=== PATIENT | female | born 1945 | race Caucasian/White ===

== ENCOUNTER → 2017-12-02 | Outpatient (CLI) | payer OTHER ==
[~2017-12-02] VITALS: Ht 165.1 cm; Wt 70.3 kg
[~2017-12-02] MED LIST: ABILIFY 5 MG TAB5 MG PO; ALENDRONATE SOD35 MG PO; ARICEPT 5 MG TAB5 MG PO; ASPIR 8181 MG PO; COREG12.5 MG PO; DEPLIN-ALGAL O1 EAC1 PO; DITROPAN XL10 M1 PO; HUMALOG100 UNIT/2 SQ; HYDRALAZINE 2525 MG PO; LEVEMIR SUBQ; LISINOPRIL20 MG PO; METFORMIN HCL500 MG PO; NORVASC10 MG PO; PANTOPRAZOLE SO20 MG PO; PAXIL10 MG PO; PLAVIX 75 MG TA75 M1 PO; PRAVACHOL40 MG PO; PRAVACHOL80 MG PO
[2017-12-02 13:20] VITALS: BP 170/73
[2017-12-02 13:30] VITALS: BP 170/73
[2017-12-02 15:33] LABS: % SATURATION 17 % (20-39); ALBUMIN 3.5 g/dL (3.4-5.0); ANION GAP 7 mmol/L (7-16); BUN 28 mg/dL (7-18); CALCIUM 9.4 mg/dL (8.5-10.1); CHLORIDE 105 mmol/L (98-107); CHOLESTEROL 247 mg/dL (<200); CO2 31 mmol/L (21-32); CREATININE 0.9 mg/dL (0.6-1.0); GLUCOSE 74 mg/dL (74-106); HDL CHOLESTEROL 45 mg/dL (>40); IRON 78 ug/dL (50-170); LDL CHOLESTEROL 170 mg/dL (<100); MAGNESIUM 2.2 mg/dL (1.8-2.4); POTASSIUM 4.1 mmol/L (3.5-5.1); SGOT 15 U/L (15-37); SGPT 22 U/L (30-65); SODIUM 143 mmol/L (136-145); TC:HDL 5.5 Ratio (Not establshd); TIBC 471 ug/dL (250-450); TOTAL BILIRUBIN 0.3 mg/dL (<0.1-1.0); TOTAL PROTEIN 7.6 g/dL (6.4-8.2); TRIGLYCERIDE 164 mg/dL (<150); VLDL 33 mg/dL (<40)
[2017-12-02 16:03] LABS: TSH 1.955 uIU/mL (0.358-3.740)
[2017-12-03 01:08] LABS: 25-HYDROXY TOTAL 19.7 ng/mL (30.0-100.0)
[2017-12-03 09:11] LABS: GLYCOHEMOGLOBIN (HGB A1C) 9.8 % (4.8-5.6)
[2017-12-05 08:12] LABS: LEVETIRACETAM (KEPPRA) 27.6 ug/mL (10.0-40.0)
== END ==
LOC: SEN 11:21
PROVIDERS: Registered Nurse
DX: I10 Essential (primary) hypertension (principal); E11.65 Type 2 diabetes mellitus with hyperglycemia; R53.83 Other fatigue; G31.84 Mild cognitive impairment of uncertain or unknown etiology

== ENCOUNTER → 2017-12-24 | Outpatient (CLI) | payer OTHER ==
[~2017-12-24] VITALS: Ht 162.6 cm; Wt 71.7 kg
[2017-12-24 13:15] VITALS: BP 157/66
== END ==
LOC: SEN 08:25
DX: E11.9 Type 2 diabetes mellitus without complications (principal); I10 Essential (primary) hypertension; F41.9 Anxiety disorder, unspecified; G31.84 Mild cognitive impairment of uncertain or unknown etiology; R53.81 Other malaise

== ENCOUNTER 2018-09-10 09:59 | Inpatient (IN) | payer OTHER ==
[2018-09-10] VITALS (12 sets, daily range): BP systolic 103–172; BP diastolic 40–66
[~2018-09-10] VITALS: Ht 165.1 cm; Wt 70.3 kg
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
--- NOTE | ~2018-09-10 | EKG ---
[address] [address] ELECTROCARDIOGRAM REPORT Name: AME HOYT Annita Room #: 248-P ADM IN M.R.#: [id number] Admission: 09/10/18 Attend Phys: Javier Ruffin MD Discharge: Date of : 43 Report #: [id number] THIS REPORT FOR: //name// [facility] Test Date: 2018-09-11 Test Time: 01:11:34 Pat Name: AME HOYT Department: Room: 248 P Gender: F Firmware Manager: JESSICA : 1945 Requested By: Javier Ruffin Order Number: [id number] MD: Leroy Pandya Measurements Intervals [place] Rate: 114 P: ND: QRS: -62 QRSD: 101 T: 70 QT: 374 QTc: 516 Interpretive Statements Junctional tachycardia Incomplete RBBB and LAFB Prolonged QT interval Compared to ECG 07/05/2018 17:07:18 Junctional tachycardia now present Electronically Signed On 09-11-2018 7:53:34 CAR COUPLER by Leroy Pandya [email or web address] <ELECTRONICALLY SIGNED> By: Leroy Pandya MD, [facility] 09/11/18 0753 011 011 Leroy Pandya MD, [facility] /EPI
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
--- NOTE | ~2018-09-10 | EEG ---
[facility] [place] [address] ELECTROENCEPHALOGRAM Name: AME HOYT Room #: 221-P [facility] IN M.R.#: [id number] Admission: 09/10/18 Attend Phys: Javier Ruffin MD Discharge: 09/15/18 Date of : 43 Report #: [id number] THIS REPORT FOR: //name// CC: Joceline Ruffin DATE OF SERVICE: 09/12/2018 This patient is being evaluated for altered mental status. EEG was done by placing the electrode by standard 10-20 system of electrode placement. Both referential and sequential montages were used for recording. Background activity in this patient's EEG is about 9 Hz and 30 microvolt. It is a symmetrical activity. There is some slowing present on the left frontal area, but that is where the patient had a craniotomy. Photic stimulation was unremarkable. The patient went to sleep that is associated with bilaterally symmetrical sleep spindle and vertex sharp waves. Throughout the record, no active epileptiform activity was noticed. IMPRESSION: The patient's EEG does not demonstrate any clear-cut epileptiform activity. It is slow in general. That is a nonspecific abnormality, which can occur with dementia, encephalopathy, effect of psychotropic medication. Clinical correlation is recommended. <ELECTRONICALLY SIGNED> By: Chavez Mckinley MD 09/20/18 1541 1353 1421 MD william Barnett
--- NOTE | ~2018-09-10 | HC ---
[facility] [place] [address] CONSULTATION Name: AME HOYT Room #: 248-P ADM IN M.R.#: [id number] Admission: 09/10/18 Attend Phys: Javier Ruffin MD Discharge: Date of : 43 Report #: [id number] THIS REPORT FOR: //name// CC: Joceline Ruffin CARDIOLOGY CONSULTATION HISTORY OF PRESENT ILLNESS: A 72-year-old female who was admitted with DKA. Apparently long-standing diabetes and very noncompliant. Recently moved here from [place], living with her daughter and other associated family members. She frequently does not take her blood pressure, cholesterol or insulin. She denies any prior cardiac history. Also obtained some of the history from her daughter. She had been noncompliant recently and been having more markedly elevated sugars with polyuria and polydipsia. Subsequently, found to be in DKA on admission here with a blood sugar in the 500-600 range. Hemoglobin A1c is pending. She denies chest pain, but has been more fatigued and at times, she does state there has been some intermittent chest pressure. The EKG has no significant changes, T-wave flattening and axis deviation. She does not have a history of prior cardiac, does not believe she has ever had a stress test. She was supposed to follow up with Cardiology for some questionable history of paroxysmal AFib, but she did not do this either. Her troponin is 1.8 and 1.84, probably not diagnostic, in this setting. MEDICATIONS: Her home medications were supposed to have been amlodipine 10, lisinopril 40, insulin, Paxil, aspirin, Plavix, metformin 500 b.i.d. and Aricept 5. ALLERGIES: CIPRO, CLONIDINE, SULFODENE AND AMOXICILLIN. PAST MEDICAL HISTORY: Positive for 20- to 30-year with history of diabetes, hypertension, hypercholesterolemia, bilateral total knees, hysterectomy with mesh revision and a vaginal fistula, which has been repaired. SOCIAL HISTORY: She is . Recently moved here from [place]. Two daughters, she lives with one of them and some other extended family. No alcohol or tobacco for 25 years. FAMILY HISTORY: Father had premature coronary artery disease. REVIEW OF SYSTEMS: Essentially not obtainable. She does not complain much, not real conversant here. LABORATORY DATA: H and H are 13 and 38, white count 11 and platelets 292,000. Sodium 140, potassium 4.0, creatinine 0.9 and glucose 140s, was in the 600 range. Hemoglobin A1c is pending. Magnesium is low at 1.7, troponin 1.8 and 1.84. Lactate is 1.6. Lipids were fairly well controlled back in May. We [address] [address] CONSULTATION Name: AME HOYT Room #: 248-P [facility] IN M.R.#: [id number] Admission: 09/10/18 Attend Phys: Javier Ruffin MD Discharge: Date of : 43 Report #: [id number] will repeat the lipid profile and the hemoglobin A1c. TSH is 1.6. PHYSICAL EXAMINATION: GENERAL: She is alert. She is not in any distress. VITAL SIGNS: Pulse 70s, blood pressure 126/60. HEENT: Eyes reveal no xanthelasmas. Pharynx is clear. NECK: Shows preserved upstrokes. Faint left-sided bruits noted. LUNGS: Clear. CARDIAC EXAMINATION: Regular rate and rhythm. There is a holosystolic murmur which is very prominent at the left upper sternal border, radiating to the left apex. ABDOMEN: Soft. EXTREMITIES: Reveal trace nonpitting edema. Distal pulses diminished. NEUROLOGIC: Nonfocal. SKIN: Warm and dry, without xanthoma or ulcer. MUSCULOSKELETAL: Generalized arthritic changes, bilateral knees; well-healed incisions with bilateral knee replacements. ASSESSMENT: 1. Diabetic ketoacidosis, long-standing diabetes (noncompliance). 2. Troponin elevation, an equivocal finding here may represent a mismatch for myocardial ischemia. Certainly will need evaluation for coronary disease. No symptoms currently. 3. Hypertension. 4. Hypercholesterolemia. 5. Degenerative joint disease. RECOMMENDATIONS AND PLAN: We will obtain echo Doppler, repeat EKG. No further troponins need to be drawn. We will check hemoglobin A1c and lipid profile. We will need evaluation at some point, once further stabilized nuclear stress testing and/or cardiac catheterization. I have discussed with ICU nursing that she can now transfer to CCU later today the patient and the patient's daughter. We will continue to follow with you. Thank you for asking us to assist in the care of this patient. By: 0839 1307 Eliecer Merino MD, FACC /nt
--- NOTE | ~2018-09-10 | EKG ---
[place] [address] [facility] [place] [address] ELECTROCARDIOGRAM REPORT Name: AME HOYT Room #: 248-P ADM IN M.R.#: [id number] Admission: 09/10/18 Attend Phys: Javier Ruffin MD Discharge: Date of : 43 Report #: [id number] THIS REPORT FOR: //name// [facility] ED Test Date: 2018-09-10 Test Time: 11:11:11 Pat Name: AME HOYT Department: Room: 248 Gender: F Special Investigation Unit Investigator: as : 1945 Requested By: Deana Mishra Order Number: [id number] MD: Leroy Pandya Measurements Intervals [place] Rate: 82 P: 64 NH: 161 QRS: -55 QRSD: 120 T: 103 QT: 440 QTc: 514 Interpretive Statements Sinus rhythm IVCD, consider atypical RBBB LVH with LAD and secondary repol abnrm Prolonged QT interval Compared to ECG 07/05/2018 17:07:18 lateral T wave inversion is less pronounced Right bundle-branch block is now present Electronically Signed On 09-11-2018 7:43:23 MANAGER CLINICAL APPLICATIONS by Leroy Pandya [email or web address] <ELECTRONICALLY SIGNED> By: Leroy Pandya MD, FAC 09/11/18 0743 1111 1111 Leroy Pandya MD, [facility] /EPI
--- NOTE | ~2018-09-10 | 2DMMODE ---
[facility] [address] [place] [address] 2 D/M-MODE ECHOCARDIOGRAM Name: AME HOYT Room #: 248-P ADM IN M.R.#: [id number] Admission: 09/10/18 Attend Phys: Javier Ruffin MD Discharge: Date of : 41 Date of Service: 09/11/18 1305 Report #: [id number] THIS REPORT FOR: //name// APPROVED REPORT Study performed: 09/11/2018 09:59:08 EXAM: Comprehensive 2D, Doppler, and color-flow Echocardiogram Patient Location: ICU Room #: 248 Status: routine BSA: 1.77 HR: 75 bpm BP: 126/57 mmHg Other Information Study Quality: Adequate Indications Abnormal ECG Diabetes Hypertension/HDD 2D Dimensions RVDd: 33.72 mm IVSd: 13.33 (7-11mm) LVOT Diam: 20.65 (18-24mm) LVDd: 36.65 mm PWd: 11.62 (7-11mm) Ascending Ao: 28.19 (22-36mm) LVDs: 19.86 (25-40mm) Aortic Root: 26.16 mm IVC: 11.00 mm Volumes Left Atrial Volume (Systole) Single Plane 4CH: 85.26 mL Single Plane 2CH: 65.36 mL Aortic Valve AoV Peak Anish.: 1.97 m/s AO Peak Gr.: 15.52 mmHg LVOT Max P.49 mmHg LVOT Mean P.82 mmHg LVOT Max V: 4.76 m/s LVOT Mean V: 2.46 m/s LVOT V1 VTI: 94.59 cm ADRIAN Vmax: 8.08 cm2 SV (LVOT): 316.51 mL [facility] [address] [place] [address] 2 D/M-MODE ECHOCARDIOGRAM Name: AME HOYT Room #: 248-P [facility] IN ..#: [id number] Admission: 09/10/18 Attend Phys: Javier Ruffin MD Discharge: Date of : 41 Date of Service: 09/11/18 1305 Report #: [id number] Mitral Valve E/A Ratio: 0.7 MV Decel. Time: 310.56 ms MV E Max Anish.: 0.70 m/s MV A Anish.: 1.00 m/s MV PHT: 90.06 ms IVRT: 121.11 ms Pulmonary Valve PV Peak Anish.: 1.75 m/s PV Peak Gr.: 12.25 mmHg Pulmonary Vein P Vein S: 0.62 m/s P Vein A: 0.24 m/s P Vein D: 0.37 m/s P Vein A Dur.: 121.1 msec P Vein S/D Ratio: 1.68 Tricuspid Valve TR Peak Anish.: 2.87 m/s RAP Estimate: 5.00 mmHg TR Peak Gr.: 33.03 mmHg PA Pressure: 38.00 mmHg Left Ventricle The left ventricle is normal size. Mild concentric left ventricular hypertrophy. Left ventricular systolic function is hyperdynamic. LVEF is 70%. Mild diastolic dysfunction is present (impaired relaxation pattern). Right Ventricle The right ventricle is normal size. The right ventricular systolic function is normal. Atria Left atrium is moderately dilated. The right atrium size is normal. Aortic Valve The aortic valve is normal in structure. No aortic regurgitation is present. There is no aortic valvular stenosis. LVOT gradient present with a maximum pressure gradient of 91 mmHg and a mean pressure gradient of 33 mmHg and a velocity of 4.76 m/s. Mitral Valve Mild mitral annular calcification. Moderate mitral regurgitation jet is eccentrically directed. No evidence of mitral valve stenosis. [facility] [address] [place] [address] 2 D/M-MODE ECHOCARDIOGRAM Name: AME HOYT Room #: 248-P [facility] IN [facility]#: [id number] Admission: 09/10/18 Attend Phys: Javier Ruffin MD Discharge: Date of : 41 Date of Service: 09/11/18 1305 Report #: [id number] Tricuspid Valve The tricuspid valve is normal in structure. Moderate tricuspid regurgitation. PAP is estimated at 38 mmHg. Pulmonic Valve Pulmonic valve is not well visualized. There is no pulmonic valvular regurgitation noted. Great Vessels The aortic root is normal in size. IVC is normal in size and collapses >50% with inspiration. Pericardium There is no pericardial effusion. <Conclusion> The left ventricle is normal size. LVEF is 70%. Left atrium is moderately dilated. The aortic valve is normal in structure. There is no aortic valvular stenosis. LVOT gradient present with a maximum pressure gradient of 91 mmHg and a mean pressure gradient of 33 mmHg and a velocity of 4.76 m/s. Mild mitral annular calcification. Moderate mitral regurgitation jet is eccentrically directed. The tricuspid valve is normal in structure. Moderate tricuspid regurgitation. PAP is estimated at 38 mmHg. Pulmonic valve is not well visualized. There is no pericardial effusion. <ELECTRONICALLY SIGNED> By: Earl Umaña MD 09/11/18 1305 1305 1305 Earl Umaña MD /INF
--- NOTE | ~2018-09-10 | EKG ---
[place] [address] [facility] [place] [address] ELECTROCARDIOGRAM REPORT Name: AME HOYT Room #: 248-P ADM IN M.R.#: [id number] Admission: 09/10/18 Attend Phys: Javier Ruffin MD Discharge: Date of : 41 Report #: [id number] THIS REPORT FOR: //name// [facility] Test Date: 2018-09-11 Test Time: 07:09:05 Pat Name: AME HOYT Department: Room: 248 P Gender: F Domestic Cleaner: CAITLIN : 1945 Requested By: Suni Mi Order Number: [id number] MD: Leroy Pandya Measurements Intervals [place] Rate: 68 P: -15 NE: 45 QRS: -56 QRSD: 105 T: 32 QT: 434 QTc: 462 Interpretive Statements Sinus rhythm Incomplete RBBB and LAFB Nonspecific ST and T wave abnormality Compared to ECG 07/05/2018 17:07:18 Sinus rhythm has replaced junctional tachycardia Electronically Signed On 09-11-2018 7:54:56 SILVER [employer] by Leroy Pandya [email or web address] <ELECTRONICALLY SIGNED> By: Leroy Pandya MD, [facility] 09/11/18 0754 [phone] Leroy Pandya MD, [facility] /EPI
[2018-09-10 10:33] LABS: BE(vivo) -21.9 mmol/L (-2 to +3); HCO3 6.2 mmol/L (22.0-26.0); PCO2 VENOUS 21.2 mmHg (41.0-51.0); PO2 VENOUS 60.3 mmHg (35.0-45.0)
[2018-09-10 10:35] LABS: URINE BILIRUBIN NEGATIVE (Negative); URINE BLOOD 1+ (Negative); URINE CLARITY CLEAR; URINE COLOR YELLOW; URINE GLUCOSE-RANDOM* 2+ (Negative); URINE KETONES 3+ (Negative); URINE LEUKOCYTES-REFLEX NEGATIVE (Negative); URINE NITRITE-REFLEX NEGATIVE (Negative); URINE PROTEIN (DIPSTICK) NEGATIVE (Negative); URINE SPECIFIC GRAVITY >= 1.030 (1.005-1.035); URINE UROBILINOGEN 0.2 E.U./dl (0.2-1.0)
[2018-09-10 10:35] LABS: ABSOLUTE NEUTROPHILS 9.2 thou/uL (1.4-8.2); BASOPHILS 0.5 % (0.0-2.0); HEMATOCRIT 42.3 % (37.0-47.0); HEMOGLOBIN 13.9 gm/dL (12.0-15.0); MCH 30.7 pg (26.0-34.0); MCHC 32.9 g/dL (28.0-37.0); MCV 93.3 fL (80.0-100.0); MONOCYTES 3.4 % (1.0-8.0); PLATELET COUNT 377 thou/uL (150-400); POLYS 72.1 % (36.0-66.0); RBC 4.53 mil/uL (4.20-5.00); RDW 14.3 % (10.5-14.5); WBC 12.8 thou/uL (4.0-11.0)
[2018-09-10 10:44] LABS: BUN 34 mg/dL (7-18); CALCIUM 9.8 mg/dL (8.5-10.1); CHLORIDE 94 mmol/L (98-107); CREATININE 1.4 mg/dL (0.6-1.0); POTASSIUM 4.6 mmol/L (3.5-5.1); SODIUM 130 mmol/L (136-145)
[2018-09-10 10:47] LABS: ANION GAP 29 mmol/L (7-16)
[2018-09-10 10:52] LABS: ALBUMIN 3.6 g/dL (3.4-5.0); SGOT 13 U/L (15-37); SGPT 22 U/L (30-65); TOTAL BILIRUBIN 0.6 mg/dL (<0.1-1.0); TOTAL PROTEIN 7.6 g/dL (6.4-8.2); TROPONIN-I <0.06 ng/mL (<0.06)
[2018-09-10 10:54] LABS: GLUCOSE 528 mg/dL (74-106)
[2018-09-10 10:55] LABS: CO2 7 mmol/L (21-32)
[2018-09-10 11:01] LABS: CRYSTALS None Seen /LPF (None Seen); FINE GRANULAR CASTS 0-3 Few /LPF (None Seen); HYALINE CASTS 0-3 Few /LPF (None Seen); SQUAMOUS 0-3 Few /LPF (0-3)
[2018-09-10 11:02] LABS: BACTERIA-REFLEX 1-9 Few /HPF (None Seen); URINE RBC 3-10 Few /HPF (0-2); URINE WBC-REFLEX 0-5 Rare /HPF (0-5)
[2018-09-10] MEDS ORDERED: PAXIL10 MG PO (11:11)
[2018-09-10] MEDS ORDERED: ALENDRONATE SODI5 MG (11:12)
[2018-09-10 11:40] LABS: MAGNESIUM 2.1 mg/dL (1.8-2.4); PHOSPHORUS 4.5 mg/dL (2.5-4.9)
[2018-09-10 14:04] LABS: ANION GAP 28 mmol/L (7-16); BUN 32 mg/dL (7-18); CALCIUM 9.4 mg/dL (8.5-10.1); CHLORIDE 100 mmol/L (98-107); GLUCOSE 441 mg/dL (74-106); POTASSIUM 5.1 mmol/L (3.5-5.1); SODIUM 133 mmol/L (136-145)
[2018-09-10 14:08] LABS: CO2 < 5 mmol/L (21-32)
[2018-09-10 16:09] LABS: CALCIUM 9.1 mg/dL (8.5-10.1); CREATININE 1.1 mg/dL (0.6-1.0); POTASSIUM 4.4 mmol/L (3.5-5.1)
[2018-09-10 22:06] LABS: ALBUMIN 2.9 g/dL (3.4-5.0); CALCIUM 8.8 mg/dL (8.5-10.1); CREATININE 0.9 mg/dL (0.6-1.0); MAGNESIUM 1.9 mg/dL (1.8-2.4); POTASSIUM 4.3 mmol/L (3.5-5.1)
[2018-09-11] VITALS (17 sets, daily range): BP systolic 99–150; BP diastolic 41–69
[2018-09-11 02:15] LABS: ALBUMIN 2.7 g/dL (3.4-5.0); CALCIUM 8.5 mg/dL (8.5-10.1); MAGNESIUM 1.8 mg/dL (1.8-2.4); PHOSPHORUS 1.7 mg/dL (2.5-4.9); POTASSIUM 3.4 mmol/L (3.5-5.1)
[2018-09-11 06:21] LABS: ABSOLUTE NEUTROPHILS 7.8 thou/uL (1.4-8.2); BASOPHILS 0.8 % (0.0-2.0); EOSINOPHILS 0.4 % (0.0-3.0); HEMATOCRIT 38.5 % (37.0-47.0); HEMOGLOBIN 13.2 gm/dL (12.0-15.0); MCH 30.8 pg (26.0-34.0); MCHC 34.3 g/dL (28.0-37.0); MCV 89.8 fL (80.0-100.0); MONOCYTES 7.2 % (1.0-8.0); POLYS 70.6 % (36.0-66.0); RBC 4.29 mil/uL (4.20-5.00); RDW 13.7 % (10.5-14.5)
[2018-09-11 06:22] LABS: PLATELET COUNT 292 thou/uL (150-400)
[2018-09-11 06:34] LABS: ALBUMIN 2.8 g/dL (3.4-5.0); CREATININE 0.9 mg/dL (0.6-1.0); MAGNESIUM 1.7 mg/dL (1.8-2.4); PHOSPHORUS 1.3 mg/dL (2.5-4.9)
[2018-09-11 12:02] LABS: CALCIUM 8.6 mg/dL (8.5-10.1); CREATININE 0.9 mg/dL (0.6-1.0); POTASSIUM 3.9 mmol/L (3.5-5.1)
[2018-09-11 12:05] LABS: ALBUMIN 2.5 g/dL (3.4-5.0); MAGNESIUM 2.1 mg/dL (1.8-2.4); PHOSPHORUS 1.7 mg/dL (2.5-4.9)
[2018-09-11 20:08] LABS: GLYCOHEMOGLOBIN (HGB A1C) 12.9 % (4.8-5.6)
[2018-09-12 04:06] LABS: ABSOLUTE NEUTROPHILS 4.7 thou/uL (1.4-8.2); BASOPHILS 0.5 % (0.0-2.0); EOSINOPHILS 0.7 % (0.0-3.0); HEMATOCRIT 31.3 % (37.0-47.0); LYMPHOCYTES 31.7 % (24.0-44.0); MCH 30.7 pg (26.0-34.0); MCHC 34.5 g/dL (28.0-37.0); MCV 89.1 fL (80.0-100.0); POLYS 59.1 % (36.0-66.0); RBC 3.51 mil/uL (4.20-5.00); RDW 13.8 % (10.5-14.5)
[2018-09-12 04:09] LABS: HEMOGLOBIN 10.8 gm/dL (12.0-15.0); PLATELET COUNT 208 thou/uL (150-400)
[2018-09-12 04:17] LABS: CREATININE 0.7 mg/dL (0.6-1.0); POTASSIUM 3.1 mmol/L (3.5-5.1)
[2018-09-12 04:22] LABS: ALBUMIN 2.4 g/dL (3.4-5.0); TOTAL BILIRUBIN 0.5 mg/dL (<0.1-1.0); TOTAL PROTEIN 5.2 g/dL (6.4-8.2)
[2018-09-12 04:57] VITALS: BP 153/60
[2018-09-12 07:23] VITALS: BP 158/68
[2018-09-12 11:46] VITALS: BP 153/69
[2018-09-12 16:04] VITALS: BP 160/64
[2018-09-12 19:23] VITALS: BP 140/65
[2018-09-13 07:56] VITALS: BP 156/69
[2018-09-13 08:38] LABS: HEMATOCRIT 38.5 % (37.0-47.0); MCH 30.6 pg (26.0-34.0); MCHC 34.3 g/dL (28.0-37.0); MCV 89.1 fL (80.0-100.0); RBC 4.33 mil/uL (4.20-5.00); RDW 13.9 % (10.5-14.5); WBC 5.8 thou/uL (4.0-11.0)
[2018-09-13 08:46] LABS: HEMOGLOBIN 13.2 gm/dL (12.0-15.0)
[2018-09-13 08:51] LABS: CALCIUM 9.2 mg/dL (8.5-10.1); CREATININE 0.7 mg/dL (0.6-1.0); MAGNESIUM 1.9 mg/dL (1.8-2.4); POTASSIUM 3.3 mmol/L (3.5-5.1)
[2018-09-13 19:31] VITALS: BP 150/76
[2018-09-14 07:35] VITALS: BP 173/90
[2018-09-14 21:28] VITALS: BP 129/67
[2018-09-15 07:20] VITALS: BP 178/71
[2018-09-15 07:26] LABS: ABSOLUTE NEUTROPHILS 2.6 thou/uL (1.4-8.2); BASOPHILS 0.6 % (0.0-2.0); EOSINOPHILS 5.1 % (0.0-3.0); HEMATOCRIT 35.7 % (37.0-47.0); HEMOGLOBIN 12.2 gm/dL (12.0-15.0); LYMPHOCYTES 42.3 % (24.0-44.0); MCH 30.7 pg (26.0-34.0); MCHC 34.1 g/dL (28.0-37.0); MCV 90.3 fL (80.0-100.0); MONOCYTES 7.6 % (1.0-8.0); PLATELET COUNT 211 thou/uL (150-400); POLYS 44.4 % (36.0-66.0); RBC 3.95 mil/uL (4.20-5.00); RDW 14.1 % (10.5-14.5); WBC 5.9 thou/uL (4.0-11.0)
[2018-09-15 07:43] LABS: CALCIUM 9.2 mg/dL (8.5-10.1); CREATININE 0.6 mg/dL (0.6-1.0); MAGNESIUM 2.3 mg/dL (1.8-2.4); POTASSIUM 3.6 mmol/L (3.5-5.1)
[2018-09-15 13:52] VITALS: BP 178/71
[2018-09-15] MEDS ORDERED: LANTUS SOL100 UNIT/1 SUBQ (14:00)
[2018-09-15] MEDS ORDERED: REMERON15 MG PO (14:00)
== END 2018-09-15 15:56 | disposition home health service (06) | DRG 682 ==
LOC: ER 09:59 → EROBS 11:17 → SICU 11:17 → ICU 11:17 → 3W 09-11 14:44 → SICU 09-12 17:56 → ENTRNSPT 09-15 15:42 → EDTRNSPTSTS 09-15 15:46 → SICU 09-15 15:56
PROVIDERS: Family Medicine; Hospitalist; Nurse Practitioner Acute Care; Physician Assistant
DX: N17.0 Acute kidney failure with tubular necrosis (principal); E11.10 Type 2 diabetes mellitus with ketoacidosis without coma; G93.41 Metabolic encephalopathy; E87.1 Hypo-osmolality and hyponatremia; F05 Delirium due to known physiological condition; Z96.653 Presence of artificial knee joint, bilateral; E86.0 Dehydration; M19.90 Unspecified osteoarthritis, unspecified site; E78.00 Pure hypercholesterolemia, unspecified; I10 Essential (primary) hypertension; F32.9 Major depressive disorder, single episode, unspecified; F03.90 Unspecified dementia, unspecified severity, without behavioral disturbance, psychotic disturbance, mood disturbance, and anxiety; M81.0 Age-related osteoporosis without current pathological fracture; G47.00 Insomnia, unspecified; E87.6 Hypokalemia; Z87.828 Personal history of other (healed) physical injury and trauma; Z86.73 Personal history of transient ischemic attack (TIA), and cerebral infarction without residual deficits; Z90.710 Acquired absence of both cervix and uterus; Z79.02 Long term (current) use of antithrombotics/antiplatelets; Z79.4 Long term (current) use of insulin; Z79.899 Other long term (current) drug therapy; Z88.1 Allergy status to other antibiotic agents; Z88.2 Allergy status to sulfonamides; Z88.8 Allergy status to other drugs, medicaments and biological substances; Z82.49 Family history of ischemic heart disease and other diseases of the circulatory system; Z83.3 Family history of diabetes mellitus; Z23 Encounter for immunization
CPT/HCPCS: 10078; 10080; 15002

== ENCOUNTER 2018-10-06 20:37 | Inpatient (IN) | payer OTHER ==
[~2018-10-06] VITALS: Ht 165.1 cm; Wt 68.0 kg
--- NOTE | ~2018-10-06 | EEG ---
[facility] [address] [place] [address] ELECTROENCEPHALOGRAM Name: AME HOYT Room #: 360-P [facility] IN M.R.#: [id number] Admission: 10/06/18 Attend Phys: Camilo Scott MD Discharge: Date of : 43 Report #: [id number] THIS REPORT FOR: //name// CC: Joceline Scott DATE OF SERVICE: 10/08/2018 The patient's EEG is done for comparison. EEG was done by placing the electrode by standard 10-20 system of electrode placement. Both referential and sequential montages were used for recording. Background activity in this patient's EEG goes about 9 Hz and 30 microvolt. The patient goes to sleep that is associated with bilaterally symmetrical sleep spindle and vertex sharp waves. Photic stimulation is unremarkable. IMPRESSION: Continued improvement in this patient's EEG. Part of the EEG looks pretty close to normal, but other part is intermixed with drowsiness. By: 1357 1413 Chavez Mckinley MD /nt
--- NOTE | ~2018-10-06 | HC ---
[facility] [place] [address] CONSULTATION Name: EVELINAAME M Room #: 360-P ADM IN .R.#: [id number] Admission: 10/06/18 Attend Phys: Camilo Scott MD Discharge: Date of : 43 Report #: [id number] THIS REPORT FOR: //name// CC: Joceline Scott DATE OF SERVICE: 10/07/2018 HISTORY OF PRESENT ILLNESS: This is a 73-year-old female patient who was evaluated by me for poorly defined history. It appears she had some generalized weakness, some diaphoresis. She had some slurred speech and she slumped over. It is not clear what her blood sugar was, but the daughter thought she may have low blood sugar at that time. She has done it before and there is really no good reason for that. These symptoms happened spontaneously without any trauma and they were severe when it happened. REVIEW OF SYSTEMS: Positive for strokes in the past. She says her memory is not very good. She has a history of what looks like craniotomy and aneurysm. She does have encephalomalacia. Daughter is not here to provide any other history. Some of the records indicate that she does have some dementia. She does not know if her clips are MRI compatible or not or what year it was put in. She does have prior encephalomalacia. We will try to talk to the patient's daughter. She had strokes in the past according to her, but it is not clear what caused her to have strokes. Record indicates that she is on donepezil. I suspect that may be because of dementia. Record indicates that she is on Keppra, but it does not look like she is on Keppra at the moment. She denies any new eye or ENT symptoms. She denies any chest pain, respiratory difficulty, GI, , musculoskeletal, constitutional, dermatological, hematological, psychiatric, throat or allergic symptom associated with present symptomatology. PAST MEDICAL HISTORY: Positive for diabetes and aneurysm. FAMILY HISTORY: Negative for any early age stroke. SOCIAL HISTORY: She lives with her daughter, but I am not able to reach her daughter and I will try again. PHYSICAL EXAMINATION: Indicate she is alert. She is responsive. She can follow simple and complex commands. She is oriented. She can tell me what month it is. She does know what hospital she is in and can name the president. Overall, her memory is poor. Cranial nerve examination 2-12 mostly looks unremarkable. She has symmetrical strength, sensation and reflexes in all 4 extremities. Reflexes are diminished. There is no cerebellar sign. I could not look at the fundus. The patient is moderately built individual. Hearing and vision look adequate. She has no dysmorphic features of eyes, ears and face. Cardiac examination is unremarkable. No respiratory difficulty or [facility] [address] [place] [address] CONSULTATION Name: AME HOYT Room #: 360-P [facility] IN [facility]#: [id number] Admission: 10/06/18 Attend Phys: Camilo Scott MD Discharge: Date of : 43 Report #: [id number] rhonchi. Pulses are difficult to feel. Blood pressure is 149/64, respiration is 17, pulse is 58, and temperature is 98.1. LABORATORY DATA: At one time earlier this year she had TSH and vitamin B12, they were okay. CT scan of the head showed no acute changes. WBC count is 10.4. IMPRESSION: I need some more history from the patient's daughter and hopefully I will be able to reach her. We need to determine whether these episodes of transient ischemic attacks or seizures are related to hypoglycemia. One of the records indicates she is on seizure medication, but I do not see anything she is on here. I do not know if her clips are compatible with MRI or not and I suspect it probably is not. RECOMMENDATION: 1. EEG. 2. I will reach the daughter and ask her about the anti-seizure medication. 3. We can do a CT angiogram of the head and neck to evaluate for any recurrence of aneurysms. At one time, her GFR was low, but presently it is okay and she may be able to tolerate the dye. I discussed all of it with the patient and I will try to discuss it with the patient's daughter. By: 1250 [id number] Chavez Mckinley MD /nt
[~2018-10-06 20:37] MED LIST changes: +ALENDRONATE SODI5 MG; +LANTUS SOL100 UNIT/1 SUBQ; +REMERON15 MG PO
[2018-10-06 21:01] LABS: URINE BILIRUBIN NEGATIVE (Negative); URINE BLOOD NEGATIVE (Negative); URINE CLARITY CLEAR; URINE COLOR YELLOW; URINE GLUCOSE-RANDOM* NEGATIVE (Negative); URINE KETONES NEGATIVE (Negative); URINE NITRITE-REFLEX NEGATIVE (Negative); URINE PROTEIN (DIPSTICK) NEGATIVE (Negative); URINE SPECIFIC GRAVITY <= 1.005 (1.005-1.035); URINE UROBILINOGEN 0.2 E.U./dl (0.2-1.0)
[2018-10-06 21:02] LABS: URINE LEUKOCYTES-REFLEX TRACE (Negative)
[2018-10-06 21:07] VITALS: BP 145/55
[2018-10-06 21:11] LABS: ABSOLUTE NEUTROPHILS 6.3 thou/uL (1.4-8.2); HEMOGLOBIN 12.5 gm/dL (12.0-15.0); LYMPHOCYTES 27.3 % (24.0-44.0); MCH 30.5 pg (26.0-34.0); MCHC 33.9 g/dL (28.0-37.0); MONOCYTES 5.4 % (1.0-8.0); PLATELET COUNT 350 thou/uL (150-400); POLYS 61.3 % (36.0-66.0); RBC 4.11 mil/uL (4.20-5.00); RDW 14.4 % (10.5-14.5); WBC 10.4 thou/uL (4.0-11.0)
[2018-10-06] MEDS ORDERED: ATORVASTATIN CA40 MG PO (21:17)
[2018-10-06 21:20] LABS: CALCIUM 9.4 mg/dL (8.5-10.1); CREATININE 0.8 mg/dL (0.6-1.0); POTASSIUM 5.4 mmol/L (3.5-5.1)
[2018-10-06 23:00] VITALS: BP 171/68
[2018-10-06 23:10] VITALS: BP 138/56
[2018-10-07 04:10] VITALS: BP 153/72
[2018-10-07 06:02] LABS: CALCIUM 8.9 mg/dL (8.5-10.1); CREATININE 0.8 mg/dL (0.6-1.0)
[2018-10-07 06:06] LABS: POTASSIUM 4.4 mmol/L (3.5-5.1)
[2018-10-07 07:28] VITALS: BP 153/80
[2018-10-07 11:04] VITALS: BP 149/64
[2018-10-07 15:37] VITALS: BP 145/59
[2018-10-07 19:08] VITALS: BP 138/63
[2018-10-08 03:34] VITALS: BP 163/77
[2018-10-08 05:22] LABS: ABSOLUTE NEUTROPHILS 3.8 thou/uL (1.4-8.2); BASOPHILS 0.6 % (0.0-2.0); EOSINOPHILS 5.8 % (0.0-3.0); HEMATOCRIT 39.1 % (37.0-47.0); HEMOGLOBIN 13.3 gm/dL (12.0-15.0); LYMPHOCYTES 50.9 % (24.0-44.0); MCH 30.5 pg (26.0-34.0); MCV 89.9 fL (80.0-100.0); MONOCYTES 7.5 % (1.0-8.0); PLATELET COUNT 374 thou/uL (150-400); POLYS 35.2 % (36.0-66.0); RBC 4.34 mil/uL (4.20-5.00); RDW 14.4 % (10.5-14.5); WBC 10.8 thou/uL (4.0-11.0)
[2018-10-08 05:35] LABS: CALCIUM 9.2 mg/dL (8.5-10.1); CREATININE 0.7 mg/dL (0.6-1.0)
[2018-10-08 05:47] LABS: POTASSIUM 3.1 mmol/L (3.5-5.1)
[2018-10-08 07:39] VITALS: BP 145/68
[2018-10-08 16:20] VITALS: BP 157/70
[2018-10-08 20:11] VITALS: BP 141/66
[2018-10-09 03:53] VITALS: BP 163/70
[2018-10-09 07:42] VITALS: BP 182/74
[2018-10-09 12:14] VITALS: BP 182/74
[2018-10-09 14:02] VITALS: BP 182/74
[2018-10-09 15:47] VITALS: BP 142/65
== END 2018-10-09 17:52 | disposition home health service (06) | DRG 69 ==
LOC: ER 20:37 → 3W 22:22 → EROBS 22:22 → 3W 23:25 → ENTRNSPT 10-09 17:29 → 3W 10-09 17:52
PROVIDERS: Emergency Medicine; Hospitalist; Nurse Practitioner Family
DX: G45.9 Transient cerebral ischemic attack, unspecified (principal); E87.1 Hypo-osmolality and hyponatremia; Z96.653 Presence of artificial knee joint, bilateral; M19.90 Unspecified osteoarthritis, unspecified site; E78.00 Pure hypercholesterolemia, unspecified; I10 Essential (primary) hypertension; E78.5 Hyperlipidemia, unspecified; F03.90 Unspecified dementia, unspecified severity, without behavioral disturbance, psychotic disturbance, mood disturbance, and anxiety; I72.9 Aneurysm of unspecified site; E11.65 Type 2 diabetes mellitus with hyperglycemia; M81.0 Age-related osteoporosis without current pathological fracture; M62.84 Sarcopenia; G47.00 Insomnia, unspecified; F32.9 Major depressive disorder, single episode, unspecified; K59.00 Constipation, unspecified; G40.909 Epilepsy, unspecified, not intractable, without status epilepticus; E11.649 Type 2 diabetes mellitus with hypoglycemia without coma; Z90.710 Acquired absence of both cervix and uterus; Z88.1 Allergy status to other antibiotic agents; Z88.2 Allergy status to sulfonamides; Z88.8 Allergy status to other drugs, medicaments and biological substances; Z83.3 Family history of diabetes mellitus; Z82.49 Family history of ischemic heart disease and other diseases of the circulatory system; Z79.82 Long term (current) use of aspirin; Z79.899 Other long term (current) drug therapy
CPT/HCPCS: 10879

== ENCOUNTER 2018-10-14 19:23 | Inpatient (IN) | payer OTHER ==
[~2018-10-14] VITALS: Ht 165.1 cm; Wt 68.0 kg
--- NOTE | ~2018-10-14 | EKG ---
[address] [address] ELECTROCARDIOGRAM REPORT Name: AME HOYT Room #: 450-P ADM IN M.R.#: [id number] Admission: 10/14/18 Attend Phys: Sadi Carson MD Discharge: Date of : 43 Report #: [id number] THIS REPORT FOR: //name// [facility] ED Test Date: 2018-10-14 Test Time: 20:14:28 Pat Name: AME HOYT Department: Room: [facility] Gender: F Facility Manager Histology: JUDE : 1945 Requested By: Kat Zayas Order Number: [id number] MD: Leroy Pandya Measurements Intervals [place] Rate: 58 P: 50 HI: 205 QRS: -45 QRSD: 119 T: 137 QT: 487 QTc: 479 Interpretive Statements Sinus rhythm Left anterior hemiblock Right ventricular conduction delay LVH with repolarization abnormality Compared to ECG 09/11/2018 07:09:05 Left ventricular hypertrophy now present Electronically Signed On 10-15-2018 7:52:27 [employer] by Leroy Pandya [email or web address] <ELECTRONICALLY SIGNED> By: Leroy Pandya MD, FACC 10/15/18 0752 13 13 Leroy Pandya MD, FAC /EPI
[~2018-10-14 19:23] MED LIST changes: +ATORVASTATIN CA40 MG PO
[2018-10-14 19:56] LABS: ABSOLUTE NEUTROPHILS 4.7 thou/uL (1.4-8.2); BASOPHILS 1.1 % (0.0-2.0); EOSINOPHILS 5.2 % (0.0-3.0); HEMATOCRIT 35.9 % (37.0-47.0); HEMOGLOBIN 12.1 gm/dL (12.0-15.0); LYMPHOCYTES 32.1 % (24.0-44.0); MCH 30.3 pg (26.0-34.0); MCHC 33.9 g/dL (28.0-37.0); MCV 89.6 fL (80.0-100.0); MONOCYTES 6.3 % (1.0-8.0); PLATELET COUNT 308 thou/uL (150-400); POLYS 55.3 % (36.0-66.0); RDW 14.3 % (10.5-14.5); WBC 8.4 thou/uL (4.0-11.0)
[2018-10-14 19:59] LABS: POC CREATININE 0.6 mg/dL (0.6-1.3); POC HEMOGLOBIN 12.2 g/dL (12.0-15.0); POC POTASSIUM 3.7 mmol/L (3.5-5.1)
[2018-10-14 20:10] LABS: ANION GAP 5 mmol/L (7-16); BUN 28 mg/dL (7-18); CALCIUM 9.3 mg/dL (8.5-10.1); CHLORIDE 104 mmol/L (98-107); CO2 28 mmol/L (21-32); CREATININE 0.7 mg/dL (0.6-1.0); GLUCOSE 130 mg/dL (74-106); POTASSIUM 3.7 mmol/L (3.5-5.1); SODIUM 137 mmol/L (136-145)
[2018-10-14 20:19] LABS: TROPONIN-I <0.06 ng/mL (<0.06)
[2018-10-14 20:55] LABS: APTT 23.5 Seconds (24.5-32.8); PROTIME 10.7 Seconds (9.3-11.4)
[2018-10-14 21:05] LABS: URINE BILIRUBIN NEGATIVE (Negative); URINE BLOOD NEGATIVE (Negative); URINE CLARITY CLEAR; URINE COLOR YELLOW; URINE GLUCOSE-RANDOM* NEGATIVE (Negative); URINE KETONES NEGATIVE (Negative); URINE LEUKOCYTES NEGATIVE (Negative); URINE NITRITE NEGATIVE (Negative); URINE PROTEIN (DIPSTICK) NEGATIVE (Negative); URINE SPECIFIC GRAVITY <= 1.005 (1.005-1.035); URINE UROBILINOGEN 0.2 E.U./dl (0.2-1.0)
[2018-10-14] MEDS ORDERED: LANTUS SUBQ (21:12)
[2018-10-14] MEDS ORDERED: WOMEN'S DAILY1 EAC2 PO (21:14)
[2018-10-14] MEDS ORDERED: ALENDRONATE SOD40 MG PO (21:46)
[2018-10-14 22:18] VITALS: BP 140/61
[2018-10-14 22:48] VITALS: BP 142/60
[2018-10-14 23:30] VITALS: BP 149/58
[2018-10-15 04:18] VITALS: BP 147/64
[2018-10-15 06:00] LABS: CREATININE 0.8 mg/dL (0.6-1.0); POTASSIUM 4.5 mmol/L (3.5-5.1)
[2018-10-15 08:00] VITALS: BP 157/57
[2018-10-15 14:10] VITALS: BP 141/59
[2018-10-15 19:19] VITALS: BP 129/56
[2018-10-16 04:10] VITALS: BP 148/57
[2018-10-16 07:44] VITALS: BP 130/44
[2018-10-16] MEDS ORDERED: KEPPRA 500 MG500 M1 PO (08:55)
[2018-10-16 09:33] VITALS: BP 130/44
[2018-10-16 10:20] VITALS: BP 130/44
== END 2018-10-16 12:43 | disposition home health service (06) | DRG 638 ==
LOC: ER 19:23 → 4W 22:01 → EROBS 22:01 → 4W 23:00 → ENTRNSPT 10-16 12:23 → EDTRNSPTSTS 10-16 12:36 → 4W 10-16 12:43
PROVIDERS: Nurse Practitioner Family; Student in an Organized Health Care Education/Training Program
DX: E11.65 Type 2 diabetes mellitus with hyperglycemia (principal); G45.9 Transient cerebral ischemic attack, unspecified; R42 Dizziness and giddiness; G93.89 Other specified disorders of brain; Z96.653 Presence of artificial knee joint, bilateral; M19.90 Unspecified osteoarthritis, unspecified site; E78.00 Pure hypercholesterolemia, unspecified; I10 Essential (primary) hypertension; E78.5 Hyperlipidemia, unspecified; F03.90 Unspecified dementia, unspecified severity, without behavioral disturbance, psychotic disturbance, mood disturbance, and anxiety; I72.9 Aneurysm of unspecified site; G40.909 Epilepsy, unspecified, not intractable, without status epilepticus; Z86.73 Personal history of transient ischemic attack (TIA), and cerebral infarction without residual deficits; Z90.710 Acquired absence of both cervix and uterus; Z88.1 Allergy status to other antibiotic agents; Z88.2 Allergy status to sulfonamides; Z83.3 Family history of diabetes mellitus; Z82.49 Family history of ischemic heart disease and other diseases of the circulatory system; Z91.14 Patient's other noncompliance with medication regimen
CPT/HCPCS: 10045

== ENCOUNTER 2018-11-30 18:22 | Emergency (ER) | payer OTHER ==
[~2018-11-30] VITALS: Ht 165.1 cm; Wt 70.3 kg
[~2018-11-30 18:22] MED LIST changes: +ALENDRONATE SOD40 MG PO; +KEPPRA 500 MG500 M1 PO; +LANTUS SUBQ; +WOMEN'S DAILY1 EAC2 PO
[2018-11-30] MEDS ORDERED: TRULICITY0.75 MG/0. SUBQ (18:31)
[2018-11-30] MEDS ORDERED: TRESIBA FL200 UNIT/1 SUBQ (18:32)
[2018-11-30 20:07] LABS: ABSOLUTE NEUTROPHILS 3.1 thou/uL (1.4-8.2); BASOPHILS 0.3 % (0.0-2.0); EOSINOPHILS 4.1 % (0.0-3.0); HEMATOCRIT 37.4 % (37.0-47.0); HEMOGLOBIN 12.6 gm/dL (12.0-15.0); LYMPHOCYTES 40.9 % (24.0-44.0); MCHC 33.7 g/dL (28.0-37.0); MCV 89.1 fL (80.0-100.0); MONOCYTES 6.8 % (1.0-8.0); PLATELET COUNT 254 thou/uL (150-400); POLYS 47.9 % (36.0-66.0); RDW 14.2 % (10.5-14.5); WBC 6.5 thou/uL (4.0-11.0)
[2018-11-30 20:15] LABS: CALCIUM 8.8 mg/dL (8.5-10.1); CREATININE 0.7 mg/dL (0.6-1.0); POTASSIUM 3.9 mmol/L (3.5-5.1)
[2018-11-30 20:21] LABS: ALBUMIN 3.3 g/dL (3.4-5.0); TOTAL BILIRUBIN 0.3 mg/dL (<0.1-1.0); TOTAL PROTEIN 7.3 g/dL (6.4-8.2)
[2018-11-30] MEDS ORDERED: DOXYCYCLINE 10100 MG PO (20:31)
[2018-11-30 21:07] VITALS: BP 160/68
== END 2018-11-30 21:09 | disposition home or self-care (01) ==
LOC: ER 18:22
PROVIDERS: Physician Assistant
DX: L03.032 Cellulitis of left toe (principal); E11.9 Type 2 diabetes mellitus without complications; R42 Dizziness and giddiness; I10 Essential (primary) hypertension; M19.90 Unspecified osteoarthritis, unspecified site; E78.00 Pure hypercholesterolemia, unspecified; Z79.4 Long term (current) use of insulin; Z88.1 Allergy status to other antibiotic agents; Z88.2 Allergy status to sulfonamides; Z88.8 Allergy status to other drugs, medicaments and biological substances; Z90.710 Acquired absence of both cervix and uterus; Z96.653 Presence of artificial knee joint, bilateral

== ENCOUNTER 2019-08-14 12:29 | Inpatient (IN) | payer OTHER ==
[2019-08-14] VITALS (7 sets, daily range): BP systolic 149–180; BP diastolic 63–79
[~2019-08-14] VITALS: Ht 165.1 cm; Wt 66.7 kg
[~2019-08-14 12:29] MED LIST changes: +DOXYCYCLINE 10100 MG PO; +TRESIBA FL200 UNIT/1 SUBQ; +TRULICITY0.75 MG/0. SUBQ
[2019-08-14 12:46] LABS: ABSOLUTE NEUTROPHILS 3.9 thou/uL (1.4-8.2); BASOPHILS 0.7 % (0.0-2.0); EOSINOPHILS 3.3 % (0.0-3.0); HEMOGLOBIN 14.3 gm/dL (12.0-15.0); LYMPHOCYTES 32.1 % (24.0-44.0); MCHC 34.8 g/dL (28.0-37.0); MCV 89.3 fL (80.0-100.0); MONOCYTES 6.5 % (1.0-8.0); PLATELET COUNT 262 thou/uL (150-400); POLYS 57.4 % (36.0-66.0); RDW 13.8 % (10.5-14.5); WBC 6.9 thou/uL (4.0-11.0)
[2019-08-14 12:51] LABS: BE(vivo) -8.5 mmol/L (-2 to +3); HCO3 14.9 mmol/L (22.0-26.0); PCO2 VENOUS 26.3 mmHg (41.0-51.0); PO2 VENOUS 81.8 mmHg (35.0-45.0)
[2019-08-14 12:54] LABS: CALCIUM 9.5 mg/dL (8.5-10.1); CREATININE 0.8 mg/dL (0.6-1.0); POTASSIUM 3.2 mmol/L (3.5-5.1)
[2019-08-14 13:00] LABS: TOTAL BILIRUBIN 0.5 mg/dL (<0.1-1.0); TOTAL PROTEIN 6.9 g/dL (6.4-8.2)
[2019-08-14 13:39] LABS: URINE BLOOD NEGATIVE (Negative); URINE CLARITY CLEAR; URINE COLOR YELLOW; URINE GLUCOSE-RANDOM* 1+ (Negative); URINE KETONES TRACE (Negative); URINE LEUKOCYTES-REFLEX NEGATIVE (Negative); URINE NITRITE-REFLEX NEGATIVE (Negative); URINE PROTEIN (DIPSTICK) 1+ (Negative); URINE SPECIFIC GRAVITY 1.025 (1.005-1.035); URINE UROBILINOGEN 0.2 E.U./dl (0.2-1.0)
[2019-08-14 13:41] LABS: ICTOTEST (BILI CONFIRMATORY) Negative (Negative); URINE BILIRUBIN NEGATIVE (Negative)
[2019-08-14 13:44] LABS: SQUAMOUS 4-10 Moderate /LPF (0-3)
[2019-08-14 13:45] LABS: CRYSTALS None Seen /LPF (None Seen); HYALINE CASTS 0-3 Few /LPF (None Seen); MUCUS >6 Heavy strn/LPF (None Seen); URINE RBC None Seen /HPF (0-2); URINE WBC-REFLEX 0-5 Rare /HPF (0-5)
[2019-08-14] MEDS ORDERED: SEROQUEL 100 M100 MG PO (14:16)
[2019-08-14 18:19] LABS: CALCIUM 9.2 mg/dL (8.5-10.1); CREATININE 0.7 mg/dL (0.6-1.0); POTASSIUM 3.7 mmol/L (3.5-5.1)
[2019-08-14 18:23] LABS: PHOSPHORUS 3.5 mg/dL (2.5-4.9)
--- NOTE | 2019-08-14 20:13 | NUR ---
pt admitted from ER for high BS, pt is A&O X3, PT starts NS 125ml/hr, RN will report to next shift to keep eye on pt, pt's bs was 222 at 1800pm, insulin 18 units sq with meal.pt denies pain ans sob at this time.
[2019-08-15 03:01] VITALS: BP 158/45
[2019-08-15 04:56] LABS: HEMATOCRIT 38.6 % (37.0-47.0); HEMOGLOBIN 12.9 gm/dL (12.0-15.0); MCH 30.1 pg (26.0-34.0); MCHC 33.3 g/dL (28.0-37.0); MCV 90.4 fL (80.0-100.0); RBC 4.27 mil/uL (4.20-5.00); RDW 13.6 % (10.5-14.5)
[2019-08-15 05:11] LABS: CREATININE 0.6 mg/dL (0.6-1.0); MAGNESIUM 1.8 mg/dL (1.8-2.4); PHOSPHORUS 2.6 mg/dL (2.5-4.9); POTASSIUM 3.5 mmol/L (3.5-5.1)
[2019-08-15 07:23] VITALS: BP 155/62
--- NOTE | 2019-08-15 08:32 | NUR ---
PT CALLS OUT APPROPRIATLY FRO ASSIST UP TO BSC, PRN HYDRALIZINE GIVEN FOR ELEVATED BP DOWN TO 158/45 THIS AM, NO C/O PAIN, IV FLUIDS FINISHEDNAD L FA SL, SR PER MONITOR, BG Q 4 HRS AND TREATED PER PROTOCOL, PT STATES SHE HASN'T SLEPT MUCH THIS EVENING, REPORT GIVEN TO NEXT SHIFT TO FOLLOW PPOC.
[2019-08-15 11:25] VITALS: BP 157/66
[2019-08-15 15:43] VITALS: BP 143/72
[2019-08-15 19:32] VITALS: BP 150/74
--- NOTE | 2019-08-15 19:54 | NUR ---
pt is A&OX3, PT's high BS has improve, running 200-300, pt's vs are stable, pt denies pain and n/v .
[2019-08-15 20:00] VITALS: BP 143/54
--- NOTE | 2019-08-16 03:07 | NUR ---
ASSESSMENT: PT REMAIN ALERT AND ORIENT TIMES THREE. CAN BE FORGETFUL AT TIMES ABOUT USING THE CALL LIGHT APPROPRIATELY. UP WTIH SBA, STEADY GAIT. DOES PULL THE BR STRING FOR ASSISTANCE BACK TO BED. VSS, AFEBRILE. DENIES PAIN, SOB AND N/V. SR PER MONITOR. KEPPRA RESUMED, NO SEIZURES NOTED. SLOW PROGRESS TOWARDS DC GOALS, WILL CONTINUE TO MONITOR.
[2019-08-16 04:14] VITALS: BP 174/87
[2019-08-16 05:39] LABS: HEMATOCRIT 37.3 % (37.0-47.0); HEMOGLOBIN 12.4 gm/dL (12.0-15.0); MCH 30.1 pg (26.0-34.0); MCHC 33.3 g/dL (28.0-37.0); MCV 90.5 fL (80.0-100.0); RBC 4.12 mil/uL (4.20-5.00); WBC 6.1 thou/uL (4.0-11.0)
[2019-08-16 05:40] LABS: GLYCOHEMOGLOBIN (HGB A1C) 11.7 % (4.8-5.6)
[2019-08-16 06:09] LABS: CALCIUM 8.9 mg/dL (8.5-10.1); CREATININE 0.6 mg/dL (0.6-1.0); MAGNESIUM 1.8 mg/dL (1.8-2.4); PHOSPHORUS 3.1 mg/dL (2.5-4.9); POTASSIUM 3.5 mmol/L (3.5-5.1)
[2019-08-16 08:32] VITALS: BP 186/86
[2019-08-16 11:39] VITALS: BP 145/84
--- NOTE | 2019-08-16 15:18 | NUR ---
ASSUMED CARE OF PATIENT AT 0700. VITAL SIGNS STABLE. PATIENT HAD NO COMPLAINTS THROUGHOUT SHIFT CONCERNING PAIN, NAUSEA OR VOMITTING. MAY DISCHARGE TOMORROW IF SHE CONTINUES TO PROGRESS TOWARDS DISCHARGE GOALS AND REMAINS STABLE. ALERT AND ORIENTED X 4, PLEASANT, STANDBY ASSIST, AND ROOM AIR.
[2019-08-16 15:21] VITALS: BP 144/68
[2019-08-16 18:35] LABS: CREATININE 0.7 mg/dL (0.6-1.0); POTASSIUM 3.5 mmol/L (3.5-5.1)
[2019-08-16 18:38] LABS: MAGNESIUM 1.8 mg/dL (1.8-2.4); PHOSPHORUS 2.9 mg/dL (2.5-4.9)
[2019-08-16 18:55] VITALS: BP 147/83
--- NOTE | 2019-08-17 04:11 | NUR ---
Pt. rested quietly during the night when checked on during frequent rounds. She offers no c/o pain or discomfort. She calls out appropriately with needs. Assisted to the bathroom with assistance of one. Bed alarm is on.
[2019-08-17 05:23] LABS: HEMATOCRIT 38.1 % (37.0-47.0); HEMOGLOBIN 12.8 gm/dL (12.0-15.0); MCHC 33.5 g/dL (28.0-37.0); MCV 89.6 fL (80.0-100.0); RBC 4.25 mil/uL (4.20-5.00); RDW 13.8 % (10.5-14.5); WBC 6.7 thou/uL (4.0-11.0)
[2019-08-17 05:44] LABS: CALCIUM 8.8 mg/dL (8.5-10.1); CREATININE 0.6 mg/dL (0.6-1.0); MAGNESIUM 1.7 mg/dL (1.8-2.4); PHOSPHORUS 3.5 mg/dL (2.5-4.9); POTASSIUM 3.6 mmol/L (3.5-5.1)
[2019-08-17 07:50] VITALS: BP 160/72
--- NOTE | 2019-08-17 08:57 | EKG ---
[place] [address] [facility] [place] [address] ELECTROCARDIOGRAM REPORT Name: AME HOYT Room #: 464-P ADM IN M.R.#: [id number] Admission: 08/14/19 Attend Phys: Maddie Naik MD Discharge: Date of : 43 Report #: [id number] THIS REPORT FOR: //name// [facility] Test Date: 2019-08-14 Test Time: 20:28:08 Pat Name: AME HOYT Department: Room: 464 Gender: F Vegetable Canner: Annita CHURCH : 1945 Requested By: Maddie Naik Order Number: [id number] MD: Leroy Pandya Measurements Intervals [place] Rate: 76 P: 26 WV: 176 QRS: -47 QRSD: 102 T: 153 QT: 410 QTc: 462 Interpretive Statements Sinus rhythm Probable left atrial enlargement Incomplete RBBB and LAFB LVH with secondary repolarization abnormality Compared to ECG 10/14/2018 20:14:28 no significant change was found Electronically Signed On 08-17-2019 8:56:47 CDT by Leroy Pandya [email or web address] <ELECTRONICALLY SIGNED> By: Leroy Pandya MD, FAC 08/17/19 0856 27 27 Leroy Pandya MD, [facility] /EPI
--- NOTE | 2019-08-17 09:17 | HC ---
[facility] [place] [address] CONSULTATION Name: EVELINAAME M Room #: 464-P [facility] IN M.R.#: [id number] Admission: 08/14/19 Attend Phys: Maddie Naik MD Discharge: Date of : 43 Report #: [id number] THIS REPORT FOR: //name// CC: Germaine Naik DATE OF SERVICE: 08/15/2019 ENDOCRINE CONSULTATION NOTE CONSULTING PHYSICIAN: Dr. Naik. REASON FOR CONSULTATION: Uncontrolled type 2 diabetes mellitus, hypoglycemia. HISTORY OF PRESENT ILLNESS: This is a 73-year-old female patient who was brought to the ER yesterday by her daughter on the notion that she has been progressively weak and noted to have severe hyperglycemia that they could not control at home. Also, she was witnessed to fall prior to her presentation to the ER, but without loss of consciousness. When I talked to the patient, she indicated that she has had type 2 diabetes mellitus for more than 20 years. She does note that she is taking insulin at home in the form of Humalog insulin before meals and Tresiba at night, but was unable to indicate the exact dosage of these different brands of insulin and explained that her daughter, Chely, handles all her insulin dosing. When she was asked as to whether or not she would know how to do it, she said not really. She does not believe that she is taking oral medications for her diabetes. The patient's record indicates that she is on Tresiba 60 units q.p.m. and Humalog insulin 5 units before meals in addition to Trulicity once a week. When asked about her blood glucose outlook home, the patient again was not able to specify specific blood glucose value ranges, but noted that they would fluctuate widely and that she would have occasional hypoglycemia, although none were severe enough to cause loss of consciousness or seizures. The patient went on to say that she has not done anything that she should do over the past 2 weeks because she does not feel that anybody cares and when I tried to explore more into what the statement meant, the patient indicated that this meant she was not taking some of her medicines, not eating as per her health provider instructions and was not monitoring her blood glucose values. The patient has been feeling increasingly weak and tired and speaks to high level of psychological stress as well. The patient believes that she might have hypertension, hyperlipidemia, but is not certain. She does not have a history of CAD, diabetic retinopathy or nephropathy, but she does experience occasional difficulties with numbness and tingling in [place] [address] CONSULTATION Name: AME HOYT Room #: 464-P [facility] IN ..#: [id number] Admission: 08/14/19 Attend Phys: Maddie Naik MD Discharge: Date of : 43 Report #: [id number] REVIEW OF SYSTEMS: CONSTITUTIONAL: Fatigue, tiredness, but not fever or chills. HEENT: Negative for sore throat, ear pain or drainage, sinus pain. PULMONARY: No shortness of breath, cough or hemoptysis. CARDIAC: No chest pain or palpitations, syncope or presyncope. GASTROINTESTINAL: Negative for abdominal pain, nausea, vomiting or changes in bowel movement frequency. NEUROLOGY: Noted for peripheral numbness involving the hands and feet, but not loss of consciousness or seizure activity. ENDOCRINE: Type 2 diabetes mellitus, intermittent issues with polyuria. MUSCULOSKELETAL: Osteoarthritis intermittent issues with arthralgia and myalgia. PSYCHIATRIC: High level of stress, she is intermittently tearful, she is dealing with what she describes as a chaotic household. Otherwise, review of systems noncontributory other than those mentioned in HPI. PAST MEDICAL HISTORY: Type 2 diabetes mellitus, history of CVA reported 5 years ago, history of aneurysm, status post craniotomy, osteoarthritis, hyperlipidemia, hypertension, history of ketoacidosis in March 2019 and August 2018, encephalomalacia. REPORTED MEDICATIONS: Include amlodipine 10 mg daily, Humalog insulin 5 units t.i.d. a.c., atorvastatin 40 mg daily, alendronate 40 mg weekly, Trulicity 0.75 mg weekly, Tresiba 60 units daily, Seroquel 100 mg at bedtime, carvedilol 12.5 mg b.i.d., aspirin 81 mg daily, Plavix 75 mg daily. ALLERGIES: AMOXICILLIN, CIPROFLOXACIN, CLONIDINE, EXENATIDE and SULFA. FAMILY HISTORY: Noncontributory. SOCIAL HISTORY: The patient has 2 daughters. She lives with one of them, Chely. She is originally from [facility]. She is an ex-smoker who quit several years ago. She does not consume alcohol. PHYSICAL EXAMINATION: GENERAL: Pleasant female patient who is not in apparent pain or distress, but has been tearful repeatedly throughout our interview. VITAL SIGNS: Blood pressure is 157/66 mmHg, heart rate of 77 beats per minute, respirations 20 per minute, temperature 36.8 degrees. CONSTITUTIONAL: She appears comfortable, not in apparent distress. HEENT: Anicteric sclerae. Intact extraocular motions. NECK: Supple, without JVD, carotid bruits or lymphadenopathy. I do not appreciate thyromegaly. CHEST: Clear to auscultation with moderate air entry bilaterally and scattered rales. No wheeze or crackles. [facility] [address] [place] [address] CONSULTATION Name: AME HOYT [place] Room #: 464-P ADM IN M.R.#: [id number] Admission: 08/14/19 Attend Phys: Maddie Naik MD Discharge: Date of : 43 Report #: [id number] HEART: Regular rate and rhythm without murmurs or gallops. ABDOMEN: Soft and lax without tenderness or organomegaly. She has active bowel sounds. EXTREMITIES: Lower extremity exam is negative for ankle edema. Well-healed scars of bilateral knee replacement surgeries are noted. No skin breaks or deformities. Pedal pulses are appreciated. Sensation to light touch is diminished. NEUROLOGIC: Awake, alert and oriented to time, place and person. The remainder of her examination is nonfocal other than for the mild sensory deficits over both feet. PSYCHIATRIC: Sad mood and affect, repeatedly tearful throughout our interview, but with logical thought process and flow of ideas. LABORATORY NOTES: Blood glucose on arrival were between 219 and 259 mg/dL; around midnight, it had dropped as low as 54 mg/dL; this morning, it was at 361 mg/dL. Laboratory vasquez, sodium 142, potassium 3.5, chloride 109, CO2 of 24, anion gap 14, BUN 28, creatinine 0.6, glucose 75, total bilirubin 0.5, calcium 9.0, phosphorus 2.6, magnesium 1.8, alkaline phosphatase 90, ALT 22, total protein 6.9, albumin 3.0, GFR 97. Lactic acid 1.2. Total cholesterol 153, triglycerides 118, HDL 45, LDL 85. Free T4 1.1 that is in May 2018. Hemoglobin A1c in August 2018 was 12.9. ASSESSMENT AND PLAN: 1. Type 2 diabetes mellitus. As noted above, there are a lot of knowledge gaps involving her diabetes history. It appears that the patient is insulin-dependent, but she gave the distinct testimony that her treatment has not been consistent and that she has not necessarily committed to all of her intended shots. Indeed, during her brief stay so far, the patient had wide fluctuations of blood glucose values including severe hypoglycemia. Interestingly, the patient has a history of diabetic ketoacidosis occurring multiple times within the past year, which is a strong testament to insulin deficiency. Fortunately, the patient does not have much in terms of renal or hepatic insufficiency to restrict our ability to use oral agents. That said, I would proceed with the patient with caution with the avoidance of hypoglycemia being a main target. However, in doing so, I would still definitely include insulin in her regimen given the occurrence of diabetic ketoacidosis and the strong complication of insulin deficiency. That said, I will start the patient on metformin ER 750 mg b.i.d., linagliptin 5 mg daily, keep Lantus 10 units at bedtime, keep support to the Humalog supplemental scale low intensity. Blood glucose monitoring a.c. and at bedtime pending or to help shed more light on her responsiveness to these therapeutic steps and undertake whatever additional measures that we have to. 2. Hypoglycemia, as noted above, this was recorded since her presentation despite not receiving large doses of insulin here. That said, the inclusion of hypoglycemic agents would be limited and the use of insulin would be at a low dose and with extreme caution until we have more objective feel to her glycemic [facility] [address] [place] [address] CONSULTATION Name: AME HOYT Room #: 464-P ADM IN M.R.#: [id number] Admission: 08/14/19 Attend Phys: Maddie Naik MD Discharge: Date of : 43 Report #: [id number] behavior once we collect blood glucose data during this hospital stay. 3. Hyperlipidemia. The patient is on atorvastatin therapy. She is to continue with the same. 4. Hypertension. The patient is on amlodipine therapy. I would resume it at the same outpatient dose of 10 mg daily. 5. Depression. The patient is clinically depressed and speaks to what she describes as a high level of stress at the household she stays in. I advised her strongly to discuss this with her primary care physician and consider the initiation of an antidepressant. I feel this is central to her lack of interest in thrive and up keeping her medical management over the past few weeks. I will defer the decision on whether or not to start an antidepressant during this hospital stay to Dr. Naik. I certainly appreciate this consultation by Dr. Naik. <ELECTRONICALLY SIGNED> By: Deisi Heath MD 08/17/19 0917 1409 [id number] Deisi Heath MD /nt
[2019-08-17 15:35] VITALS: BP 159/83
--- NOTE | 2019-08-17 15:47 | NUR ---
Assumed patient care at 0715. Patient is pleasantly confused. Vital signs have been stable. Blood sugars thus far today have been 292 at 0836 and 387 at 1225. Consult placed with Dr Casimiro Juares due to her hyperglycemia. Patient has transferred from bed to chair, has been consuming adequate amounts of food and fluids. Compliant with medications and treatments. POC followed. Will continue to monitor.
--- NOTE | 2019-08-17 16:30 | NUR ---
PT ADMITTED RELATED TO HYPERGLYCEMIA. CM REVIEWED CHART AND SPOKE WITH CARE TEAM. CM MET WITH PT AT BEDSIDE THIS DAY. PT IS A&O X4. CM ROLE INTRODUCED. PT INDICATED SHE LIVES IN A HOUSE WITH HER DTR GRANDTR HER SPOUSE AND 4 YR OLD. PT INDICATED THERE ARE 2 STEPS TO ENTER AND NONE SHE USES INSIDE. PT INDICATED SHE HAD BEEN INDEPENDENT WITH GAIT AND ADLS CORRESPONDENCE COORDINATOR. PT INDICATED SHE PLANS TO RETURN HOME WITH HER DTR ONCE MEDICALLY STABLE. CM TRIED TO CONTACT PT'S DTR SARY JOHNSON ON THE TWO NUMBERS LISTED AND ONE GOES TO A FULL VOICEMAIL AND THE OTHER IS A NON WORKING NUMBER. CM TO FOLLOW INDICATED WITH DC PLANNING.
[2019-08-17 20:10] VITALS: BP 163/65
[2019-08-18] VITALS (7 sets, daily range): BP systolic 147–183; BP diastolic 64–92
--- NOTE | 2019-08-18 06:09 | NUR ---
Pt. rested quietly during the night when checked on during frequent rounds. She offers no c/o pain or discomfort. Up to the bathroom with walker and stand by assistance. Bed alarm is on.
[2019-08-18 07:21] LABS: CALCIUM 9.4 mg/dL (8.5-10.1); CREATININE 0.7 mg/dL (0.6-1.0); MAGNESIUM 1.7 mg/dL (1.8-2.4); PHOSPHORUS 3.9 mg/dL (2.5-4.9); POTASSIUM 3.6 mmol/L (3.5-5.1)
[2019-08-18] MEDS ORDERED: CLEOCIN HCL150 MG PO ×2 (13:39→13:50)
[2019-08-18] MEDS ORDERED: GLIPIZIDE 5 MG T5 MG PO (13:40)
[2019-08-18] MEDS ORDERED: PEPCID AC10 MG PO (13:40)
[2019-08-18] MEDS ORDERED: GLUCOPHAGE XR750 MG PO (13:40)
[2019-08-18] MEDS ORDERED: TRADJENTA5 MG PO (13:40)
[2019-08-18] MEDS ORDERED: TRESIBA FL200 UNIT/1 SUBQ (13:41)
--- NOTE | 2019-08-18 14:54 | NUR ---
CARE TEAM INDICATED THAT PT IS MEDICALLY STABLE TO DC HOME THIS DAY. CM ATTEMPTED PT'S DTR SARY JOHNSON AT THE TWO NUMBERS LISTED AGAIN TODAY AND WASN'T ABLE TO REACH HER. PT HAD [facility] FOR HH SERVICES IN THE PAST. PT WAS AGREEABLE WITH REFERRAL BEING SENT TO [facility]. DC CASING WRINGER OPERATOR TO SEND REFERRAL.
--- NOTE | 2019-08-18 15:06 | NUR ---
DISCHARGE PLANNING. PATIENT DISCHARGING TO HOME WITH HOME HEALTH SERVICES. [facility]. AWAITING RESPONSE FROM [facility]. FOLLOWING.
--- NOTE | 2019-08-18 15:10 | NUR ---
Assumed patient care at 0715. Patient continues to be very pleasant, forgetful. She is compliant with all tests and treatments. Blood sugars were 275 at 0720, 294 at 1204; both requiring [address] Naik visited patient this am. She has approved for patient to discharge after Physical Therapy assessed her. Vital signs have been stable. POC followed. IV is patent in left forearm. Patient has had apropriate food and fluid intake. She uses her call light for stand by assist when she needs to use the restroom. Patient denies pain. LSCTA, abdomen is soft and non-tender, BS x's 4, skin is clean, warm, dry and intact. Patient's daughter to be here to pick her up at approximately 1730. Will continue to monitor.
--- NOTE | 2019-08-18 15:34 | NUR ---
CM SPOKE WITH PT'S DTR SHE IS AWARE AND AGREEALBE WITH DC HOME THIS DAY. DTR TO PROVIDE TRANSPORT HOME VIA PERSONAL VEHICLE. NO OTHER CM INTERVENTION INDICATED. CASE CLOSED.
--- NOTE | 2019-08-18 18:29 | NUR ---
Patient just left with daughter, all belongings and Discharge Instructions. Daughter is DPOA and signed all Discharge Paperwork.
--- NOTE | 2019-08-25 10:13 | H ---
[facility] [place] [address] HISTORY AND PHYSICAL Name: EVELINAAME M Room #: 464-P [facility] IN M.R.#: [id number] Admission: 08/14/19 Attend Phys: Maddie Naik MD Discharge: 08/18/19 Date of : 41 Report #: [id number] THIS REPORT FOR: //name// CC: Germaine Patel DATE OF SERVICE: 08/14/2019 PRIMARY CARE PHYSICIAN: Ms. Germaine Reynoso who can be reached at [phone]. Durable power of collections attorney for health is her daughter, Estela [phone]. CHIEF COMPLAINT: 1. Unreadable high sugars for past 1 week at home. 2. Cough, intermittent with nonproductive cough, intermittent for the past 2-3 days after being exposed to cold by her great grandson. 3. Weakness and lightheadedness intermittently for the past 3-4 days. HISTORY OF PRESENT ILLNESS: The patient is a very pleasant 73-year-old female with very poorly controlled diabetes mellitus with hemoglobin A1c ranging between 10-14. The patient lives at home with her daughter and besides having diabetes mellitus, she also has some cognitive impairment with dementia, hypertension, hyperlipidemia and has been independent for her activities of daily living, but is unable to remember things and unable to remember her medications and daughter manages everything. Patient informs me that every time she has had high sugar she feels very weak and tired and last 1 week has been really rough. According to the daughter, the patient does have dietary noncompliance. Like couple of days ago, she had half stoddard of brownies she had baked for rest of the family. The patient finished it all by herself and so has lot of dietary noncompliance and forgets to take her medications. The patient was exposed to URI viral infection to her great grandson and has been having some nonproductive cough, but has not had any fever, shaking chills, night sweats or shortness of breath or pleuritic chest pain. The patient has not had any dysuria, hematuria, frequency or urgency of urination either. The patient denies any nausea, vomiting, diarrhea or abdominal pain associated with high sugars. The sugars were coming unreadable and today the patient was more disoriented and had some weakness and dizziness and lightheadedness and sustained a witnessed fall in the kitchen, which the patient does not remember and she fell on her left side and witnessing family member informed that she did not hit her head. The patient did not have any bladder or bowel incontinence associated with it and did not have any syncopal episode. However, the patient has absolutely no recollection of this fall in the kitchen that she can recall. PAST MEDICAL HISTORY: Significant for: 1. Very poorly controlled diabetes mellitus type 2. 2. Hypertension. [facility] [address] [place] [address] HISTORY AND PHYSICAL Name: AME HOYT Room #: 464-P DIS IN M.R.#: [id number] Admission: 08/14/19 Attend Phys: Maddie Naik MD Discharge: 08/18/19 Date of : 41 Report #: [id number] 3. Hyperlipidemia. 4. Cerebral aneurysm, which was clipped and the patient had craniotomy and is on long-term Keppra. 5. Encephalomalacia. 6. Dementia. 7. Ischemic stroke 5 years ago x 2. PAST SURGICAL HISTORY: The patient has had: 1. Right frontal craniotomy. 2. Total abdominal hysterectomy with bilateral salpingo-oophorectomy. 3. Two total knee replacements. 4. D and Cs. 5. Bladder sling surgery x 2. 6. Mesh from the bladder sling surgery eroded in the vaginal area, so had a surgery for removal of that. 7. Aneurysm clipping in the brain with right frontal craniotomy and subsequent encephalomalacia. 8. Questionable blood clotting disorder. 9. Osteoporosis. ALLERGIES: THE PATIENT IS ALLERGIC TO ANTIBIOTIC THAT DAUGHTER COULD NOT RECALL AND SHE INFORMS THAT IS ALL IN THE COMPUTER. REVIEWED ALLERGIES WITH THE PATIENT AND THE DAUGHTER. THE PATIENT IS ALLERGIC TO AMOXICILLIN, CIPROFLOXACIN, SULFADIAZINE AND EXENATIDE, AND CLONIDINE. THE PATIENT'S DAUGHTER DOES NOT REMEMBER REACTION TO CLONIDINE AND EXENATIDE, BUT DOES REMEMBER ANTIBIOTICS CAUSING RASH. PERSONAL AND SOCIAL HISTORY: The patient smoked tobacco, but quit 30 years ago and did take alcohol twice a week, never heavy alcohol intake, but has not taken alcohol for past several years, maybe more than 20+ years. FAMILY HISTORY: Mother had hypertension and end-stage kidney disease and was on hemodialysis for the last 3 years of her life and father had CABG x 2 and hypertension and both parents are . Denies any history of cancer. REVIEW OF SYSTEMS: Ten point review of system was done and in addition to the ones listed above in the HPI, the patient denies any weakness or numbness of any part of the body and denies any palpitations or any difficulty with comprehension or speech. The slurred speech that daughter noted this morning was when she was having an episode of dizziness and weakness, but that was very short lived and the patient's speech cleared up right after that once the patient sat down and negative for any skin breakdown or rash. The patient also denies any hematochezia, melena, hematuria, dysuria, frequency or urgency of urination. PHYSICAL EXAMINATION: [facility] [address] [place] [address] HISTORY AND PHYSICAL Name: AME HOYT Room #: 464-P [facility] IN M.R.#: [id number] Admission: 08/14/19 Attend Phys: Maddie Naik MD Discharge: 08/18/19 Date of : 41 Report #: [id number] VITAL SIGNS: When the patient presented to the Emergency Room at 12:32 p.m. today, temperature 36.4, heart rate 69, respirations 17, blood pressure 149/72, pulse oximeter 96% on room air. At the time of examination, the patient had heart rate 67, respirations 20, blood pressure 170/69, pulse ox 97% on room air. GENERAL: Alert, awake and oriented to time, place and person, very pleasant 73-year-old female with difficulty recalling her health conditions besides diabetes and unable to give much of a history, but is communicative and has a sad affect. HEENT: Normocephalic, atraumatic. Pupils equally round, reactive to light. Extraocular muscle movement intact. The patient is able to follow directions for physical exam. Conjunctivae clear. Sclerae nonicteric. Oropharynx clear. Uvula midline. Angle of mouth symmetrical. NECK: Supple, no JVD, no lymphadenopathy. HEART: S1, S2 regular with 3/6 systolic ejection murmur noted. LUNGS: Clear to auscultation bilaterally without any crackles or wheezes. Bilaterally symmetrical chest expansion present. ABDOMEN: Soft, nontender, nondistended, normal active bowel sounds, no organomegaly noted. EXTREMITIES: No edema both lower extremities. Pedal pulses present. NEUROLOGIC: Cranial nerves 2-12 are intact, and the patient has strength checked in all 4 extremities for flexors and extensors as well as range of motion, is bilaterally symmetrical and within normal limits. SKIN: No skin breakdown, no bruises or rash noted anywhere on exam. LABORATORY DATA: The patient had a chemistry significant for a sodium 137, potassium low at 3.2, chloride 105, bicarbonate 21, anion gap 11, BUN 43, creatinine 0.8, estimated GFR 70. Serum glucose when the patient presented was 262, calcium 9.5, total bilirubin 0.5, AST 21, ALT 22, alkaline phosphatase 90, total protein 6.9, albumin 3.0 and a beta hydroxybutyrate or serum acetone was 0.34. Blood gas was done at the time of admission. The patient had pH of 7.372 with pCO2 low at 26.3, pO2 of 81.8 on room air with carboxyhemoglobin elevated at 2 and methemoglobin normal. Lactate 0.98, which is within normal limits and this was on room air. Hematology indicates WBC 6.9, hemoglobin 14.3, hematocrit 41.0, platelet count 262 with mild eosinophilia noted. Otherwise, differential is completely within normal limits. Urinalysis indicates pH of 6.5, specific gravity 1.025, 1+ protein and trace urine ketones, otherwise, urinalysis is completely negative for protein, glucose, leukocyte esterase, nitrite or bilirubin. Electrocardiogram is being ordered and is pending at the time of dictation and a urine culture has been sent from the Emergency Room and chest x-ray is being ordered and is pending at the time of dictation for the cough and exposure to URI at home. ASSESSMENT AND PLAN: 1. Diabetic ketoacidosis. [facility] [address] [place] [address] HISTORY AND PHYSICAL Name: AME HOYT Room #: 464-P DIS IN M.R.#: [id number] Admission: 08/14/19 Attend Phys: Maddie Naik MD Discharge: 08/18/19 Date of : 41 Report #: [id number] 2. Poorly controlled diabetes mellitus type 2. 3. Hypertension. 4. Hyperlipidemia. 5. Dementia with encephalomalacia. 6. Hypokalemia, magnesium and phosphorus are pending at the time of dictation. 7. Cough/URI after exposure to family members. 8. The patient wishes to be full code. 9. DVT prophylaxis with heparin and GI prophylaxis with Pepcid. PLAN: 1. The patient is being admitted to critical care telemetry as she has normal anion gap and she has gotten 2 liters of IV fluids in the Emergency Room and is now euvolemic. The blood glucose has been in the range of 200 and even the serum ketones are elevated, we will do aggressive insulin and monitor gap closely with a BMP, mag and phos in 4 hours. If the patient does start developing anion gap and serum acetone gets higher, then would move to ICU and put insulin drip. 2. I have entered Endocrinology consult and we will appreciate concurrent management in this challenging poorly controlled diabetic patient. 3. Dehydration. Fluid has been resuscitated. 4. Because of the slurred speech and fall with loss of balance which likely very well could be because of dehydration, but we will go ahead and do a CT scan of the head as the patient has had prior stroke times 2 and encephalomalacia from prior surgery and we will resume Keppra. 5. Accu-Cheks q. 4 hours. 6. No evidence of infection noted except URI and so at this point in time, I would not start any antibiotics and we will get a chest x-ray and if the patient does spike a fever, then we will do blood cultures and start antibiotics. For next 24 hours, we will do q. 4 hour Accu-Cheks and q. 4 hour insulin with Lantus on board 5 units at bedtime as the patient has brittle diabetes and she has hypoglycemic events quite frequently as well at home as the daughter describes. 7. Fall precautions. 8. BMP q. 4 hours until electrolytes are within normal limits. 9. Replace potassium, magnesium and phosphorus aggressively. We will go ahead and keep magnesium above 2 and potassium above 4 and phosphorus above 2. 10. We will check out patient to the night nurse practitioner so BMP and electrolytes can be monitored closely and we will write for neuro checks because of the question of a slurred speech and fall. 11. We will go ahead and do a bladder scan to make sure the patient does not have urinary retention as she has had bladder surgery x 2. 12. Review of systems is completely negative, but if the patient has urinary retention, then will need straight catheterization for urinary retention. Would prefer not to place a Quintana catheter. 13. For hypertension, we will write for hydralazine for systolic blood pressure greater than [address] [address] HISTORY AND PHYSICAL Name: AME HOYT Room #: 464-P [facility] IN M.R.#: [id number] Admission: 08/14/19 Attend Phys: Maddie Naik MD Discharge: 08/18/19 Date of : 41 Report #: [id number] 14. Reviewed advanced directives and code status with the patient and the patient's daughter is the primary lead performance support analyst for the patient and she informs me that at this time the patient is full code and we will wait for endocrine consult and their concurrent management. 15. Resume her home aspirin, carvedilol, Plavix, and Keppra that she has been taking and atorvastatin. Plan of care was discussed with the patient and the daughter. All the lab work as well as vital signs and imaging have been reviewed with the patient here in the Emergency Room with the daughter who is DPOA. <ELECTRONICALLY SIGNED> By: Maddie Naik MD 08/25/19 1013 [id number] Maddie Naik MD /nt
== END 2019-08-18 19:00 | disposition home health service (06) | DRG 638 ==
LOC: ER 12:29 → 3W 17:00 → 4W 17:00 → 3W 08-16 09:09 → 4W 08-16 18:25
PROVIDERS: Internal Medicine; Physician Assistant; ADMIT Internal Medicine
DX: E11.10 Type 2 diabetes mellitus with ketoacidosis without coma (principal); N39.0 Urinary tract infection, site not specified; G93.89 Other specified disorders of brain; E87.6 Hypokalemia; I10 Essential (primary) hypertension; E78.5 Hyperlipidemia, unspecified; F03.90 Unspecified dementia, unspecified severity, without behavioral disturbance, psychotic disturbance, mood disturbance, and anxiety; M81.0 Age-related osteoporosis without current pathological fracture; E86.0 Dehydration; Z96.653 Presence of artificial knee joint, bilateral; E78.00 Pure hypercholesterolemia, unspecified; M19.90 Unspecified osteoarthritis, unspecified site; E11.649 Type 2 diabetes mellitus with hypoglycemia without coma; F32.9 Major depressive disorder, single episode, unspecified; E83.42 Hypomagnesemia; G40.909 Epilepsy, unspecified, not intractable, without status epilepticus; Z88.8 Allergy status to other drugs, medicaments and biological substances; Z82.49 Family history of ischemic heart disease and other diseases of the circulatory system; Z84.1 Family history of disorders of kidney and ureter; Z79.899 Other long term (current) drug therapy; Z91.11 Patient's noncompliance with dietary regimen; Z86.73 Personal history of transient ischemic attack (TIA), and cerebral infarction without residual deficits; Z90.710 Acquired absence of both cervix and uterus; Z79.4 Long term (current) use of insulin; Z79.82 Long term (current) use of aspirin; Z83.3 Family history of diabetes mellitus; Z28.21 Immunization not carried out because of patient refusal
CPT/HCPCS: 10047; 10879

== ENCOUNTER 2019-12-24 05:28 | Inpatient (IN) | payer OTHER ==
[~2019-12-24] VITALS: Ht 165.1 cm; Wt 59.0 kg
[~2019-12-24 05:28] MED LIST changes: +CLEOCIN HCL150 MG PO; +GLIPIZIDE 5 MG T5 MG PO; +GLUCOPHAGE XR750 MG PO; +PEPCID AC10 MG PO; +SEROQUEL 100 M100 MG PO; +TRADJENTA5 MG PO
[2019-12-24 05:29] VITALS: BP 173/56
[2019-12-24] MEDS ORDERED: HUMALOG100 UNIT/1 (06:00)
[2019-12-24] MEDS ORDERED: LISINOPRIL40 MG PO (06:01)
[2019-12-24] MEDS ORDERED: PAROXETINE HCL10 MG PO (06:02)
[2019-12-24 06:37] LABS: HEMATOCRIT 38.9 % (37.0-47.0); HEMOGLOBIN 12.6 gm/dL (12.0-15.0); MCH 29.9 pg (26.0-34.0); MCHC 32.4 g/dL (28.0-37.0); MCV 92.3 fL (80.0-100.0); RBC 4.21 mil/uL (4.20-5.00); RDW 14.2 % (10.5-14.5)
[2019-12-24 06:40] LABS: CALCIUM 9.1 mg/dL (8.5-10.1); CREATININE 0.7 mg/dL (0.6-1.0); POTASSIUM 4.2 mmol/L (3.5-5.1)
[2019-12-24 06:42] LABS: URINE BILIRUBIN NEGATIVE (Negative); URINE BLOOD NEGATIVE (Negative); URINE CLARITY CLEAR; URINE COLOR YELLOW; URINE GLUCOSE-RANDOM* 3+ (Negative); URINE KETONES 3+ (Negative); URINE LEUKOCYTES-REFLEX NEGATIVE (Negative); URINE NITRITE-REFLEX NEGATIVE (Negative); URINE PROTEIN (DIPSTICK) NEGATIVE (Negative); URINE SPECIFIC GRAVITY 1.025 (1.005-1.035); URINE UROBILINOGEN 0.2 E.U./dl (0.2-1.0)
[2019-12-24 06:48] LABS: PROTIME 10.4 Seconds (9.3-11.4)
[2019-12-24 07:25] VITALS: BP 147/56
[2019-12-24 07:32] VITALS: BP 157/62
[2019-12-24 08:26] VITALS: BP 144/56
--- NOTE | 2019-12-24 19:45 | NUR ---
PT A&OX4, FORGETFUL AT TIMES. IV INFUSING FLUIDS IN R HAND W/O COMPS. TOLERATING PO PAIN MEDS WELL. R HIP FX CONFIRMED AND PT WILL HAVE SURGERY T[place]. WILL PLACE NPO AFTER JUAN PABLO OKEEFE WILL BE HERE IN AM.
[2019-12-24 21:45] VITALS: BP 156/107
--- NOTE | 2019-12-24 22:15 | NUR ---
1900 ASSUMED CARE OF PT AFTER BEDSIDE REPORT, 2099 ASSESSMENT COMPLETED SEE ASSESSMENT, FALL PRECAUTIONS IN PLACE, Q2 HOUR REPOSITION PEDAL PULSES PRESENT, PT ORIENTED X 4 AT TIMES. 2209 [facility] CONTR[employer] SPECIALIST NOTIFIED OF CBG 447 WILL GIVE 12 UNITS PER ORDER, MED WAS NOT AVAILABLE AT 2099, WILL RECHECK CBG AT 020
[2019-12-24 23:07] LABS: GLYCOHEMOGLOBIN (HGB A1C) 12.2 % (4.8-5.6)
[2019-12-25 03:40] VITALS: BP 144/67
[2019-12-25 04:33] VITALS: BP 146/51
--- NOTE | 2019-12-25 10:19 | HC ---
[facility] [address] [place] [address] CONSULTATION Name: AME HOYT Room #: 439-P ADM IN M.R.#: [id number] Admission: 12/24/19 Attend Phys: Camilo Scott MD Discharge: Date of : 43 Report #: [id number] THIS REPORT FOR: cc: Germaine Reynoso,Deisi Aguilar MD ~ CC: Nat Reynoso DATE OF SERVICE: 12/24/2019 ENDOCRINE CONSULTATION NOTE CONSULTING PHYSICIAN: Dr. Nat Wilson. PRIMARY CARE PHYSICIAN: KISHORE Quiroz REASON FOR CONSULTATION: Uncontrolled type 2 diabetes mellitus. HISTORY OF PRESENT ILLNESS: This is a 74-year-old female patient whose medical background is significant for multiple medical issues including type 2 diabetes mellitus, history of CVA, dementia, hyperlipidemia, and hypertension. The patient was brought to the ER via EMS following a fall that she sustained with associated right hip pain. The patient says that she tripped and fell in the bathroom. She is not sure whether or not she hit her head, but she does not believe that she has lost consciousness. Again, the patient's medical background is significant for type 2 diabetes mellitus that has been longstanding with significant issues with therapeutic noncompliance. Upon arrival, the patient's blood glucose was 387 and was again at 377 earlier before this dictation. The patient is supposed to be on a combination of linagliptin 5 mg daily, metformin 750 mg b.i.d., glipizide 5 mg b.i.d. in addition to Tresiba 36 units daily as well as Humalog insulin 5 units before meals. However, the patient was not able to provide specific details on how consistent she has taken these medications. When questioned about the glycemic outlook that she has had lately, she indicated that she has mostly witnessed severe hyperglycemia with most of her blood glucose values running over 300 mg/dL. She has not had particular issues with hypoglycemia in the recent past. The patient believes that diabetes might have been associated with retinopathy, but she does not recall having had eye surgery. The patient had two CVAs in the past. She is not aware of diabetic nephropathy issues. She does not experience much in terms of peripheral numbness or tingling involving her extremities, upper and lower. The patient is also known to have hypertension and is maintained on amlodipine 10 mg daily, lisinopril 40 mg b.i.d. She is also on carvedilol 12.5 [place] [address] CONSULTATION Name: AME HOYT Room #: 439-P [facility]#: [id number] Admission: 12/24/19 Attend Phys: Camilo Scott MD Discharge: Date of : 43 Report #: [id number] The patient is known to have hyperlipidemia and is maintained on atorvastatin 40 mg daily. REVIEW OF SYSTEMS: CONSTITUTIONAL: Fatigue, tiredness, but not fever or chills or significant body weight changes. Her appetite has been good. HEENT: Negative for sinus pain, congestion, ear drainage. PULMONARY: Occasional shortness of breath and cough, but no hemoptysis. CARDIAC: Negative for chest pain, palpitations, syncope or presyncope. GASTROINTESTINAL: Negative for abdominal pain, nausea, vomiting or changes in bowel movement frequency. NEUROLOGY: Negative for loss of consciousness, seizure activity or severe frequent headaches. PSYCHIATRIC: Negative for delusions, hallucinations. The patient was believed to have a degree of dementia. Otherwise, review of systems noncontributory other than those mentioned in HPI. PAST MEDICAL HISTORY: 1. Type 2 diabetes mellitus. 2. Hypertension. 3. Hyperlipidemia. 4. History of cerebrovascular accident. 5. History of brain aneurysm, status post right frontal craniotomy with aneurysm clipping. 6. Osteoarthritis. 7. Dementia. 8. History of ketoacidosis in 03/2018 and 08/2018. PAST SURGICAL HISTORY: Noted for: 1. Hysterectomy. 2. Right frontal craniotomy, status post aneurysm clipping. 3. Breast biopsy. 4. Replacement, left in 1999 and right in 2008. OUTPATIENT MEDICATIONS: Include: 1. Keppra 500 mg b.i.d. 2. Pepcid 20 mg daily. 3. Glucophage ER 750 mg b.i.d. 4. Linagliptin 5 mg daily. 5. Glipizide 5 mg b.i.d. 6. Tresiba insulin 36 units daily. 7. Humalog insulin 5 units before meals. 8. Amlodipine 10 mg daily. 9. Atorvastatin [address] [address] CONSULTATION Name: AME HOYT Room #: 439-P [facility] IN M.R.#: [id number] Admission: 02/27/20 Attend Phys: Camilo Scott MD Discharge: Date of : 43 Report #: [id number] 10. Alendronate weekly. 11. Trulicity 0.75 mg weekly. 12. Seroquel 100 mg or 50 mg at bedtime. 13. Zestril 40 mg b.i.d. 14. Paroxetine 10 mg daily. 15. Carvedilol 12.5 mg p.o. b.i.d. 16. Aspirin 81 mg daily. 17. Plavix 75 mg daily. ALLERGIES: AMOXICILLIN, CIPROFLOXACIN, CLONIDINE, EXENATIDE, AND SULFA. FAMILY HISTORY: Noncontributory. SOCIAL HISTORY: The patient currently resides with her daughter. She denies use of tobacco, alcohol or illicit drugs. PHYSICAL EXAMINATION: GENERAL: Pleasant female patient who is not in apparent pain or distress. VITAL SIGNS: Blood pressure is 144/56 mmHg, heart rate is 68 beats per minute, respirations 18 per minute, temperature 36.7 degrees. CONSTITUTIONAL: The patient is sitting upright in her bed, having lunch. Appears relatively comfortable, not in apparent distress. HEENT: Anicteric sclerae. Intact extraocular motions. NECK: Supple, without JVD, carotid bruits or lymphadenopathy. I do not appreciate thyromegaly. CHEST: Noted for moderate entry bilaterally with scattered rales. HEART: Regular rate and rhythm without murmurs or gallops. ABDOMEN: Soft, lax. No tenderness or organomegaly. Active bowel sounds. EXTREMITIES: Lower extremity exam is negative for ankle edema. The patient has good pedal pulses bilaterally. No skin breaks. NEUROLOGIC: Awake, alert, oriented to place and person. The rest of her examination is largely nonfocal. PSYCHIATRIC: Pleasant, interactive, appears apprehensive a little bit, but overall flat mood and affect. LABORATORY DATA: Blood glucose of 377 mg/dL. Sodium 133, potassium 4.2, chloride 98, CO2 is 19, anion gap 16, BUN 25, creatinine 0.7, AST 21, total bilirubin 0.5, calcium 9.1, phosphorus 3.9, magnesium 1.7, alkaline phosphatase 90, ALT 22. INR 1.0. White blood count 9.0, hemoglobin 12.6, hematocrit 38.9, platelets 216. Hemoglobin A1c in July 2019 was at 11.7%; in August 2018, 12.9%; in May 2018, 9.9%; in November 2017, 9.8%. ASSESSMENT AND PLAN: 1. Type 2 diabetes mellitus. As noted above, the patient has had longstanding type 2 diabetes mellitus with a historic outlook of poor control in the setting [address] [address] CONSULTATION Name: AME HOYT Room #: 439-P [facility] IN [facility]#: [id number] Admission: 12/24/19 Attend Phys: Camilo Scott MD Discharge: Date of : 43 Report #: [id number] of significant compliance difficulties. I believe that part of the difficulty is the patient's reported dementia and her ability to adhere to what could be a complex therapeutic program. Currently, she presents with severe hyperglycemia that strongly indicates she might not have been taking her insulin for a while. I will check a hemoglobin A1c to gain further insight into her overall level of control as of the past few months. In the immediate setting, I would like to initiate therapy with a basal insulin in the form of Lantus 25 units daily and will also include Humalog insulin at a dose of 6 units with meals while supporting the patient with a background Humalog supplemental scale low intensity. Blood glucose monitoring will continue a.c. and at bedtime in order to adjust the patient's regimen going forward. The patient has been maintained on metformin in the outpatient setting. Her kidney function is permissive of using this in the hospital setting as well and I am not aware of her receiving any contrast studies as all of her radiologic studies have been contrast-free so far. That said, I will start the patient on metformin 500 mg b.i.d. 2. Hypertension. The patient's level of blood pressure control is adequate for the most part. I will defer the decision on starting her antihypertensive regimen to the Hospital Medicine team. I will defer to the hospital primary team on adjusting her antihypertensive regimen. She is currently on lisinopril 40 mg b.i.d. and amlodipine 10 mg daily. 3. Hyperlipidemia. The patient is maintained on atorvastatin therapy 40 mg daily and tolerates this well, she is to continue with the same. I reviewed the patient's clinical care notes, laboratory data, and other pertinent information both past and present at length for over 35 minutes. I certainly appreciate this consultation by Dr. Wilson. <ELECTRONICALLY SIGNED> By: Deisi Heath MD 12/25/19 1019 [id number] Deisi Heath MD /nt
[2019-12-25 11:57] LABS: HEMATOCRIT 34.9 % (37.0-47.0); HEMOGLOBIN 11.5 gm/dL (12.0-15.0); MCH 30.2 pg (26.0-34.0); MCHC 32.9 g/dL (28.0-37.0); MCV 91.8 fL (80.0-100.0); RBC 3.8 mil/uL (4.20-5.00); RDW 14.1 % (10.5-14.5); WBC 8.8 thou/uL (4.0-11.0)
[2019-12-25 14:00] VITALS: BP 179/67
--- NOTE | 2019-12-25 14:58 | NUR ---
PT ADMITTED RELATED TO HIP FRACTURE, FALL. CM REVIEWED CHART AND SPOKE WITH CARE TEAM. CM MET WITH PT AND FAMILY AT BEDSIDE. PT IS A&O X SELF. PT'S TWO DTRS AND GDTR WERE PRESENT. DTR SARY IS DPOA PAPERWORK COPIED AND PLACED IN CHART. THEY INDICATED THAT PT RESIDES IN A HOUSE WITH DTR SARY 2 STEPS TO ENTER AND NO NE INSIDE. DTR STATED THAT PT HAS FWW THAT SHE DOESN'T USE CONSISTANTLY. PT HAS HAD [facility] IN THE PAST. PT IS TO HAVE SURGERY THIS DAY. CM PROVIDED FAMILY WITH A [facility] SNF LIST. THEY ARE TO REVIEW IT AND DETERMINE WHERE THEY WANT REFERRALS SENT FOR LIKELY POST ACUTE CARE STAY. CM TO FOLLOW INDICATED WITH DC PLANNING.
[2019-12-25 17:09] VITALS: BP 171/72
[2019-12-25 19:15] VITALS: BP 160/75
[2019-12-26 04:00] VITALS: BP 156/66
--- NOTE | 2019-12-26 04:25 | NUR ---
PT WAS OBSERVED LYING IN BED WATCHING TV AT THE START OF SHIFT.PT'S DRSG C/D/I.HEMOVAC AND SCD IN PLACE.RECINOS CATH IN PLACE.PT ABLE TO MAKE HER NEEDS KNOWN.FALL PRECAUTIONS IN PLACE,CALL LIGHT WITHIN REACH.
[2019-12-26 06:04] LABS: HEMATOCRIT 34.5 % (37.0-47.0); HEMOGLOBIN 11.6 gm/dL (12.0-15.0); MCHC 33.7 g/dL (28.0-37.0); RBC 3.75 mil/uL (4.20-5.00); RDW 14.4 % (10.5-14.5)
[2019-12-26 06:16] LABS: CALCIUM 8.8 mg/dL (8.5-10.1); CREATININE 0.6 mg/dL (0.6-1.0); POTASSIUM 3.9 mmol/L (3.5-5.1)
[2019-12-26 08:39] VITALS: BP 160/83
--- NOTE | 2019-12-26 10:48 | O ---
[facility] [place] [address] OPERATIVE REPORT Name: AME HOYT Room #: 439-P ADM IN M.R.#: [id number] Admission: 12/24/19 Attend Phys: Camilo Scott MD Discharge: Date of : 43 Report #: [id number] THIS REPORT FOR: cc: Germaine Reynoso Beth RNP Clymer, David J. MD ~ CC: Germaine Scott DATE OF SERVICE: 12/25/2019 PREOPERATIVE DIAGNOSIS: Right femoral neck fracture. POSTOPERATIVE DIAGNOSIS: Right femoral neck fracture. PROCEDURE: Right proximal femoral hemiarthroplasty. SURGEON: Tyler Arteaga MD INDICATIONS: This frail 74-year-old female with mild dementia and a previous stroke, has been ambulatory with a walker, but with limited balance. She fell injuring the right hip. X-rays confirmed a displaced and unstable right femoral neck fracture. I have discussed the issue with the patient and her family who have decided to go ahead with cemented hemiarthroplasty. DESCRIPTION OF PROCEDURE: The patient was taken to the operating room where she was placed under general anesthesia. She was turned to the left lateral decubitus position. The right hip and thigh were meticulously prepped and draped. A slightly curving posterolateral skin incision was made and carried through gluteus extending to the posterior aspect of the hip joint. The short external rotators and capsule were taken down and preserved and tagged with several #1 FiberWire sutures. The femoral neck was found to be fractured and unstable. The head was removed and measured at 48 mm in diameter. The canal was prepared with reamers and hand broaches. The Pelletier and Nephew hip system was utilized. A size 13 Synergy cemented stem seemed to fit nicely. A trial reduction was performed and the hip seemed nicely reduced when using a +0 neck length and the 48 mm head. The trial components were removed. A cement restrictor was placed in the canal. Methyl methacrylate cement was mixed and injected into the canal. The Pelletier and Nephew size 13 Synergy cemented femoral stem was then inserted, placing this in about 15 degrees of anteversion. Excess cement was removed around its margin. A cobalt chrome 48 mm unipolar head with a +0 neck length was selected. This was impacted onto the Sanchez taper. The hip was reduced. Alignment, range of motion and stability were felt to be acceptable. The capsule and short external rotators were repaired using #1 FiberWire sutures, placed back to the greater trochanter. A single Hemovac was left in the wound exiting through a separate stab incision. [place] [address] OPERATIVE REPORT Name: AME HOYT Room #: 439-P [facility] IN .R.#: [id number] Admission: 12/24/19 Attend Phys: Camilo Scott MD Discharge: Date of : 43 Report #: [id number] closed with multiple #1 Vicryl sutures. The subcutaneous tissues were closed with 0 Monocryl. The skin was closed with skin zander. A sterile dressing was applied. The patient was awakened and returned to recovery room in good condition. <ELECTRONICALLY SIGNED> By: Tyler Arteaga MD 12/26/19 1048 [id number] Tyler Arteaga MD /nt
--- NOTE | 2019-12-26 14:27 | NUR ---
Assumed care of pt at 0700. Dressing c/d/i. Quintana catheter in place. IVF infusing. Pt up to the chair with physical therapy. Fall precautions in place. Will continue to monitor.
[2019-12-26 17:54] VITALS: BP 150/63
[2019-12-26 21:30] VITALS: BP 164/82
--- NOTE | 2019-12-27 03:11 | NUR ---
PT DENIED PAIN SO FAR.DRGS TO HER R HIP C/D/I.RECINOS CATH IN PLACE TO DD. PT IN A VERY HAPPY MOOD AT START OF SHIFT.PT ABLE TO MAKE HER NEEDS KNOWN.PT RESTING ON HER BED AT THIS TIME.FALL PRECAUTIONS IN PLACE,CALL LIGHT WITHIN REACH.
[2019-12-27 05:15] VITALS: BP 161/70
[2019-12-27 06:36] LABS: HEMATOCRIT 32.7 % (37.0-47.0); HEMOGLOBIN 10.8 gm/dL (12.0-15.0); MCH 30.1 pg (26.0-34.0); MCHC 33.1 g/dL (28.0-37.0); MCV 90.9 fL (80.0-100.0); RBC 3.6 mil/uL (4.20-5.00); RDW 14.3 % (10.5-14.5); WBC 7.7 thou/uL (4.0-11.0)
[2019-12-27 08:29] VITALS: BP 160/74
[2019-12-27 17:49] VITALS: BP 137/53
--- NOTE | 2019-12-27 19:43 | NUR ---
PT DOING WELL W/ TRANSFER AND AMBULATING W/ WALKER. SOME C/O HIP PAIN HELPED W/ PAIN MED. BLOOD SUGARS VERY HIGH AND DR. HAYWARD INCREASING DOSAGES OF INSULIN. DTR HERE TO VISIT. PLAN FOR PT TO GO FOR SKILLED VISIT.
[2019-12-27 20:20] VITALS: BP 157/58
--- NOTE | 2019-12-28 03:12 | NUR ---
PT IS ALERT BUT FORGETFUL. MOVES SLOWLY AND WITH ROLLER WALKER IS BALE TO USE THE BSC. PT IS VOIDING WITH FREQUENCY, SHE IS INCONTINENT AT TIMES. SOME PIECES OF BM NOTED. THADDEUS DRSG TO R HIP INTACT. USES CALL LIGHT. FALL RISK IN PLACE.
[2019-12-28 05:40] VITALS: BP 160/66
[2019-12-28 08:03] VITALS: BP 115/63
--- NOTE | 2019-12-28 15:34 | NUR ---
CM SPOKE WITH DTR SHE INDICATED THAT THEY WOULD LIKE REFERRALS FOR POST ACUTE CARE STAY SENT TO [facility] AND [facility]. REFERRAL TO BE SENT. CM TO FOLLOW INDICATED WITH DC PLANNING.
--- NOTE | 2019-12-28 16:29 | NUR ---
FAXED REFERRAL TO [facility] SPOKE WITH ELHAM SHE RECEIVED REFERRAL AND WILL REVIEW IF SHE CAN ACCEPT TO SUBMIT FOR AUTH. FAXED REFERRAL TO [facility] SPOKE WITH YAS IN ADM SHE RECEIVED REFERRAL AND CAN ACCEPT. FAXED REFERRAL TO [facility] AND SPOKE WITH MIGUEL IN ADM SHE DOES NOT HAVE ANY BED AVAILABLE. DP TO FOLLOW.
[2019-12-28 16:57] VITALS: BP 151/59
--- NOTE | 2019-12-28 18:06 | NUR ---
ASSUMED CARE OF THE PT AT 0700. PT IS UP TO BSC WITH ASSIST. PT IS RA. C/O PAIN TOLERATED WITH PAIN MEDS, SEE EMAR. PT TOLERATED PT WELL. PT IS VERY FORGETFUL, NEEDS TO BE REORIENTED. IV DRY AND INTACT. FALL PRECAUTIONS IN PLACE, BED IN THE LOWEST POSITION AND CALL LIGHT IS WITHIN REAH. WILL CONTINUE TO MONITOR THE PT.
[2019-12-28 19:45] VITALS: BP 170/69
--- NOTE | 2019-12-28 23:26 | NUR ---
ASSESSMENT COMPLETED. PT ALERT WITH FORGETFULNESS. R HIP WITH THADDEUS DRSG INTACT. PT REQUIRES ASSIST X 1 TO THE BSC. PT WITH URINARY FREQUENCY AND SOME INCONTINENCE.VSS.BP ELEVATED BUT LISINOPRIL GIVEN AT HS. PT SWALLOWS OKAY.PROGRESSING TOWARDS CARE GOALS.
[2019-12-29 04:15] VITALS: BP 161/60
[2019-12-29 06:26] LABS: HEMATOCRIT 32.5 % (37.0-47.0); HEMOGLOBIN 10.6 gm/dL (12.0-15.0); MCHC 32.7 g/dL (28.0-37.0); MCV 91.5 fL (80.0-100.0); RBC 3.55 mil/uL (4.20-5.00); RDW 14.6 % (10.5-14.5)
[2019-12-29 06:53] LABS: CALCIUM 8.4 mg/dL (8.5-10.1); CREATININE 0.5 mg/dL (0.6-1.0)
[2019-12-29 06:56] LABS: POTASSIUM 2.8 mmol/L (3.5-5.1)
[2019-12-29 08:33] VITALS: BP 149/67
--- NOTE | 2019-12-29 14:33 | NUR ---
Assumed care of pt at 0700. Pt forgetful. Dressing c/d/i. Potassium level 2.8 this am. Replacement ordered. Awaiting insurance auth for SNF. Pain controlled with prn pain meds. Fall precautions in place.
--- NOTE | 2019-12-29 14:41 | NUR ---
[facility] IND[facility]PT PT AND THAT THEY HAVE SUBMITTED FOR AUTH. AWAITING INSURANCE AUTH. PT IS MEDICALLY STABLE FOR DC. CM TO FOLLOWING INDICATED WITH DC PLANNING.
--- NOTE | 2019-12-29 15:10 | NUR ---
PATIENT DOING WELL TODAY. ASSESSMENT INDICATED PT IS ORIENTED X3 TO PERSON, PLACE, AND SITUATION. SHE STATES HER PAIN IS TOLERABLE BUT INCREASES DURING PHYSICAL THERAPY. PATIENT WAS ABLE TO AMBULATE DOWN HOSPITAL WING. PEDAL PULSES ARE 1+ BILATERALLY AND CAP REFILL IS NOT EVIDENT BILATERALLY FOR TOES. TOES WERE COOL TO THE TOUCH BUT PATIENT STATED THAT IS NORMAL FOR HER. SCD'S WERE APPLIED. SHE HAS BEEN URINATING FREQUENTLY AND OCCASSIONALY DOES NOT MAKE IT TO THE COMODE. BLOOD SUGAR HAS BEEN HIGH AND SHE INDICATES LACK OF KNOWLEDGE ABOUT DIABETES AND MAINTENANCE. DRESSING ON RIGHT HIP IS DRY AND INTACT.
[2019-12-29 15:25] VITALS: BP 142/59
[2019-12-29 15:50] VITALS: BP 152/65
--- NOTE | 2019-12-29 15:54 | NUR ---
I have reviewed and concur with student documentation.
[2019-12-29 20:53] VITALS: BP 151/69
[2019-12-30 04:00] VITALS: BP 174/62
[2019-12-30 07:53] VITALS: BP 173/75
--- NOTE | 2019-12-30 15:29 | NUR ---
FAXED CLINICAL UPDATE TO [facility] SPOKE WITH ELHAM IN ADM SHE RECEIVED UPDATE AND STILL WTG ON AUTH. DP TO FOLLOW.
[2019-12-30 15:53] VITALS: BP 144/69
--- NOTE | 2019-12-30 16:30 | NUR ---
STILL WAITING FOR INSURANCE AUTH FOR PT TO GO [facility].
--- NOTE | 2019-12-30 18:29 | NUR ---
PT TRANSFERRED TO 4N FROM . RECEIVED REPORT FROM NURSE REEVES. PT IS AOX3, VSS, RIGHT HIP PAIN CONTROLLED WITH ORAL ANALGESIC. NURSE EDUCATED PT ABOUT THE USE OF CALL LIGHT. FALL PRECAUTIONS IN PLACE. WILL CONTINUE TO MONITOR.
[2019-12-30 18:31] VITALS: BP 157/70
--- NOTE | 2019-12-30 19:46 | NUR ---
Assumed care of pt at 0700. Pt alert but forgetful. Dressing c/d/i. Pain controlled with prn pain meds. Awaiting on insurance authorization for pt to be discharged to rehab. Pt transferred to room 403. Family aware. Fall precautions in place.
[2019-12-30 20:00] VITALS: BP 160/72
[2019-12-31 04:48] LABS: CALCIUM 8.8 mg/dL (8.5-10.1); CREATININE 0.7 mg/dL (0.6-1.0); MAGNESIUM 1.7 mg/dL (1.8-2.4); POTASSIUM 4.1 mmol/L (3.5-5.1)
--- NOTE | 2019-12-31 05:12 | NUR ---
Assumed pt care at 1900. Pt's A/OX3, but able to make needs known. VSS.Up with AX1 RW/GB, WBAT to RLE. C/o mild pain especially with movement, emdicated per EMAR with relief reported. Pt calls to use BSC but is always incontinent of urine, pericare done PRN. THADDEUS dsg in place on Right hip C/D/I. Trace edema noted on right foot,bed elevated. Fall precautions in place,will continue to monitor pt.
[2019-12-31 05:13] LABS: HEMATOCRIT 31.9 % (37.0-47.0); HEMOGLOBIN 10.5 gm/dL (12.0-15.0); MCH 29.9 pg (26.0-34.0); MCHC 32.9 g/dL (28.0-37.0); MCV 90.8 fL (80.0-100.0); RBC 3.51 mil/uL (4.20-5.00); RDW 14.4 % (10.5-14.5); WBC 6.7 thou/uL (4.0-11.0)
[2019-12-31 07:20] VITALS: BP 151/83
[2019-12-31 13:02] LABS: ALBUMIN 2.4 g/dL (3.4-5.0); CALCIUM 9.3 mg/dL (8.5-10.1); CREATININE 0.6 mg/dL (0.6-1.0); POTASSIUM 3.6 mmol/L (3.5-5.1); TOTAL BILIRUBIN 0.3 mg/dL (<0.1-1.0); TOTAL PROTEIN 6.6 g/dL (6.4-8.2)
--- NOTE | 2019-12-31 13:49 | NUR ---
DISCHARGE PLANNING. POST ACUTE CARE RECOMMENDED AT DISCHARGE. PATIENT REFERRAL FAXED [facility] Y[facility] PER JENNIFER PEACE OFFICER. UPDATED CLINICAL INFORMATION FAXED TODAY, FOR INSURANCE AUTH PROCESS. CALL PLACED TO RAMONE LIZARRAGA, TO NOTIFY. AWAITING RESPONSE. UNIT SW AWARE.
--- NOTE | 2019-12-31 13:59 | NUR ---
SW reviewed chart and spoke with nursing and attending physician. [facility] from and is progressing towards goals for discharge. cyber ops planner to fax clinical/therapy updates to [facility] for review. Will need insurance authorization. REAGAN met with pt at bedside to provide update and discuss discharge. Pt is aware and in agreement with plan. Pt's dtr, Estela, would like to be contacted at time of discharge. REAGAN is following to assist as needed with discharge planning.
[2019-12-31 19:39] VITALS: BP 153/73
--- NOTE | 2020-01-01 04:27 | NUR ---
Assumed pt care at 1900. Pt A/OX3,able to make needs known. VSS. Up with min AX1,GB/RW to BSC. C/o right hip pain medicated per EMAR with relief reported. Incontinent of bladder,moisture barrier applied PRN. THADDEUS dsg oin place right hip C/D/I,icepack offered as needed as well. Fall precautions in place, calls approp. Resting w/o distress at this time will continue to monitor pt.
[2020-01-01 07:35] VITALS: BP 163/82
[2020-01-01 08:06] VITALS: BP 163/82
--- NOTE | 2020-01-01 13:36 | NUR ---
DISCHARGE NOTE: SW notified by Eliza at [facility] that they did obtain insurance authorization. [facility] is able to accept pt today. Wheelchair van transportation scheduled for 1400 per facility's arrangements. SW spoke with pt's dtr, Estela, via phone to provide update. Estela is aware and agreeable with discharge plan. Estela will meet pt over at [facility]. Chart copy requested. Nursing to call report. No additional SW needs identified at this time, but is available to assist should needs arise.
--- NOTE | 2020-01-01 14:37 | NUR ---
ASSUMED CARE OF PATIENT AT 0715, PATIENT ALERT AND ORIENTED X 3. PATIENT C/O PAIN WITH RIGHT HIP, REPAIRED BY DR KHAN, THADDEUS DRESSING IN PLACE, C/D/I. UP WITH ASSIST X 1 WITH GB AND WALKER. PATIENT WEARS BRIEFS, INCONTINENT. PATIENT HAD MEDIUM STOOL THIS SHIFT. REDNESS TO BUTTOCKS, BARRIER CREAM APPLIED. BLOOD SUGAR MONITORING ORDERED, LAST BS 321, SHE RECEIVED S/S INSULIN 9 UNITS, AND SCHEDULED 12 UNITS LISPRO, THIS RN NOTIFIED DR PRINGLE OF BLOOD SUGAR DROPPING TO 70'S AT DINNER TIME, NEW ORDER FOR LISPRO 12 UNITS WITH MEALS RECEIVED. [facility], REPORT GIVEN TO LIBAN/LIZBETH. RIGHT FOREARM IV REMOVED PRIOR TO DISCHARGE. ALL DISCHARGE PAPERWORK AND ALL PERSONAL BELONGINGS SENT WITH THE PATIENT. PATIENT LEFT VIA [employer]. [employer]
== END 2020-01-01 14:49 | DRG 470 ==
LOC: ER 05:28 → 4S 07:36 → 4N 12-30 18:13
PROVIDERS: Emergency Medicine Emergency Medical Services; Internal Medicine; Orthopaedic Surgery; ADMIT Hospitalist
PROC: 0SRR019 Replacement of Right Hip Joint, Femoral Surface with Metal Synthetic Substitute, Cemented, Open Approach (ICD-10-PCS; principal; 2019-12-25)
DX: S72.001A Fracture of unspecified part of neck of right femur, initial encounter for closed fracture (principal); Z96.653 Presence of artificial knee joint, bilateral; E78.00 Pure hypercholesterolemia, unspecified; I10 Essential (primary) hypertension; E11.65 Type 2 diabetes mellitus with hyperglycemia; E78.5 Hyperlipidemia, unspecified; M19.90 Unspecified osteoarthritis, unspecified site; F03.90 Unspecified dementia, unspecified severity, without behavioral disturbance, psychotic disturbance, mood disturbance, and anxiety; I72.9 Aneurysm of unspecified site; G93.89 Other specified disorders of brain; G40.909 Epilepsy, unspecified, not intractable, without status epilepticus; G47.00 Insomnia, unspecified; E11.649 Type 2 diabetes mellitus with hypoglycemia without coma; F32.9 Major depressive disorder, single episode, unspecified; Z90.710 Acquired absence of both cervix and uterus; Z88.1 Allergy status to other antibiotic agents; Z88.2 Allergy status to sulfonamides; Z88.8 Allergy status to other drugs, medicaments and biological substances; Z87.891 Personal history of nicotine dependence; Z83.3 Family history of diabetes mellitus; Z82.49 Family history of ischemic heart disease and other diseases of the circulatory system; Z79.82 Long term (current) use of aspirin; Z79.899 Other long term (current) drug therapy; Z47.89 Encounter for other orthopedic aftercare; Z87.820 Personal history of traumatic brain injury; W18.39XA Other fall on same level, initial encounter; Y93.89 Activity, other specified; Y92.89 Other specified places as the place of occurrence of the external cause; Y99.8 Other external cause status
CPT/HCPCS: 10091; 10195; 50010; 50101; 50382; 50414; 51057; 51130; 51225; 51412; 53000; 53369; 56521; 56530; 57116; 62110; 62900; 70005

== ENCOUNTER 2020-06-01 12:19 | Inpatient (IN) | payer OTHER ==
[~2020-06-01] VITALS: Ht 165.1 cm; Wt 57.2 kg
--- NOTE | ~2020-06-01 | EMS ---
[address] [address] EMS Patient Care Report Name: AME HOYT [id number] Admission: 06/01/20 Attend Phys: Discharge: Date of : 43 Report #: [id number] THIS REPORT FOR: //name// Report Transmitted: 06/01/2020 13:49 EMS Care Summary [place], [place]/[facility] Incident [id number] @ 06/01/2020 11:23 Incident Location [address] [place] [address] Patient AME HOYT Female, 74 Years 1945 Patient Address [address] [place] [address] Patient History Dementia,Diabetes,Hypertension (HTN),Stroke/CVA, Patient Allergies Other drug allergy, Patient Medications Trazodone, ASA, Quetiapine, Amlodipine, Atorvastatin, Paroxetine, Levetiracetam, Chief Complaint I feel weak and dizzy Disposition Transported No Lights/[place] Reason Diabetic Problem Transported To [facility] Narrative Called to the scene for a diabetic. Upon arrival, P42 on the scene. Pt was COYLE x 3 lying in bed c/o feeling weak and dizzy. Family said she slept late and was concerned about her BS levels. Normal for her is in the 200's. No trauma reported, pt has dementia and is sometimes a little confused. Family [address] [place] [address] EMS Patient Care Report Name: AME HOYT Room #: [facility]..#: [id number] Admission: 06/01/20 Attend Phys: Discharge: Date of : 43 Report #: [id number] wanted her transported to [facility] ER for further eval & tx. Pt was moved to the EMS cot and loaded into the ambulance w/o incident. Vitals obtained. D-stick. [address] elevation. Attempt IV. 20g IV obtained. D-stick repeated. 125cc D10W given. Pt stated she felt a little better. Vitals and d-stick repeated. RR to [facility]. Arrived: pt taken to ER #6, pt care & report to ER staff. Initial Vitals @11:55P: 90, @11:45P: 104,R: 16,BP: 98/67,Glucose: 74,SpO2: 99, @11:47P: 100,Pain: 0/10,GCS: 15,CO: 1,SpO2: 98,DC Suspected: false @11:57P: 91,R: 14,BP: 109/74,Pain: 0/10,GCS: 15,Glucose: 92,SpO2: 98,Revised Trauma: 12,DC Suspected: false @12:20P: 88,R: 18,BP: 114/71,Pain: 0/10,GCS: 15,Glucose: 166,SpO2: 99,Revised Trauma: 12,DC Suspected: false Assessments @11:34MENTAL:Person Oriented,Time Oriented,Place Oriented,Event Oriented,SKIN:Pale,HEENT:LUNG SOUNDS:ABDOMEN:PELVIS//GI:EXTREMITIES:Left Arm: No Abnormalities,Right Arm: No Abnormalities,Left Leg: No Abnormalities,Right Leg: No Abnormalities,PULSE:Radial: 2+ Normal,NEURO:No Abnormalities, Impression Generalized Weakness Procedures @11:50Saline Lock 8cc (20 ga) Site: Forearm-RightResponse: UnchangedSucceeded@11:4712-Lead ECGResponse: UnchangedSucceeded@11:34ALS AssessmentResponse: UnchangedSucceeded@11:52Dextrose 10% - 125 Milliliters (ml) - Intravenous (IV)Response: Improved@11:40StretcherResponse: Unchanged@11:453-Lead ECGResponse: UnchangedSucceeded@11:48Saline Lock cc (18 ga) Site: Forearm-RightResponse: UnchangedFailed Timeline 11:22,Call Received 11:22,Dispatch Notified 11:23,Dispatched 11:25,En Route 11:33,On Scene 11:34,At Patient 11:34,ALS Assessment,Response: UnchangedSucceeded, 11:40,Stretcher,Response: Unchanged 11:45,BP: 98/67 M,PULSE: 104,RR: 16 R,SPO2: 99 Ox,ETCO2: ,B,PAIN: ,GCS: , 11:45,3-Lead ECG,Response: UnchangedSucceeded, 11:47,12-Lead ECG,Response: UnchangedSucceeded, 11:47,BP: / M,PULSE: 100,RR: R,SPO2: 98 Ox,ETCO2: ,BG: ,PAIN: 0,GCS: 15, [facility] [address] [place] [address] EMS Patient Care Report Name: AME HOYT Room #: [facility].RSapphire#: [id number] Admission: 06/01/20 Attend Phys: Discharge: Date of : 43 Report #: [id number] 11:48,Saline Lock cc 18 ga Site: Forearm-Right,Response: UnchangedFailed, 11:50,Saline Lock 8cc 20 ga Site: Forearm-Right,Response: UnchangedSucceeded, 11:52,Dextrose 10% - 125 Milliliters (ml) - Intravenous (IV),Response: Improved 11:55,BP: / M,PULSE: 90,RR: R,SPO2: Ox,ETCO2: ,BG: ,PAIN: ,GCS: , 11:57,BP: 109/74 M,PULSE: 91,RR: 14 R,SPO2: 98 Ox,ETCO2: ,B,PAIN: 0,GCS: 15, 12:00,Depart Scene 12:14,At Destination 12:20,BP: 114/71 M,PULSE: 88,RR: 18 R,SPO2: 99 Ox,ETCO2: ,B,PAIN: 0,GCS: 15, 12:33,Call Closed Disclaimer v1.1 Copyright 2020 [employer] This EMS Care Summary contains data elements from the applicable legal record (which may be displayed differently). It is designed to provide pertinent information for the following purposes: continuity of care, clinical quality, and state data reporting. The complete legal record is available to ED staff and administrators of the receiving hospital in [employer]'s Patient Tracker. All data is provided "as is."
[~2020-06-01 12:19] MED LIST changes: +HUMALOG100 UNIT/1; +LISINOPRIL40 MG PO; +PAROXETINE HCL10 MG PO
[2020-06-01 12:24] VITALS: BP 110/59
[2020-06-01 13:22] LABS: BASOPHILS 1.2 % (0.0-2.0); EOSINOPHILS 2.8 % (0.0-3.0); HEMATOCRIT 42.2 % (37.0-47.0); HEMOGLOBIN 14.2 gm/dL (12.0-15.0); LYMPHOCYTES 36.9 % (24.0-44.0); MCH 30.4 pg (26.0-34.0); MCHC 33.6 g/dL (28.0-37.0); MCV 90.7 fL (80.0-100.0); MONOCYTES 5.9 % (1.0-8.0); PLATELET COUNT 275 thou/uL (150-400); POLYS 53.2 % (36.0-66.0); RBC 4.66 mil/uL (4.20-5.00); RDW 14.8 % (10.5-14.5); WBC 5.6 thou/uL (4.0-11.0)
[2020-06-01 13:37] LABS: ANION GAP 9 mmol/L (7-16); BUN 29 mg/dL (7-18); CALCIUM 9.3 mg/dL (8.5-10.1); CHLORIDE 104 mmol/L (98-107); CO2 29 mmol/L (21-32); CREATININE 0.8 mg/dL (0.6-1.0); GLUCOSE 157 mg/dL (74-106); POTASSIUM 3.4 mmol/L (3.5-5.1); SODIUM 142 mmol/L (136-145)
[2020-06-01 13:46] LABS: ALBUMIN 3.4 g/dL (3.4-5.0); DIRECT BILIRUBIN 0.2 mg/dL (<0.1-0.2); SGOT 24 U/L (15-37); SGPT 35 U/L (30-65); TOTAL BILIRUBIN 0.5 mg/dL (0.2-1.0); TOTAL PROTEIN 7.2 g/dL (6.4-8.2); TROPONIN-I <0.06 ng/mL (<0.06)
[2020-06-01] MEDS ORDERED: HUMALOG100 UNIT/1 SUBQ (14:17)
[2020-06-01 14:26] LABS: URINE BILIRUBIN NEGATIVE (Negative); URINE BLOOD NEGATIVE (Negative); URINE CLARITY CLEAR; URINE COLOR YELLOW; URINE GLUCOSE-RANDOM* 3+ (Negative); URINE KETONES NEGATIVE (Negative); URINE LEUKOCYTES-REFLEX NEGATIVE (Negative); URINE NITRITE-REFLEX NEGATIVE (Negative); URINE PROTEIN (DIPSTICK) TRACE (Negative)
[2020-06-01] MEDS ORDERED: DESYREL150 MG PO (15:15)
[2020-06-01 18:33] VITALS: BP 113/78
[2020-06-01 18:46] VITALS: BP 125/75
[2020-06-01 20:00] VITALS: BP 118/72
[2020-06-01 21:10] VITALS: BP 118/68
[2020-06-02 06:02] LABS: ABSOLUTE NEUTROPHILS 2.7 thou/uL (1.4-8.2); BASOPHILS 0.8 % (0.0-2.0); EOSINOPHILS 1.5 % (0.0-3.0); HEMATOCRIT 37.3 % (37.0-47.0); HEMOGLOBIN 12.7 gm/dL (12.0-15.0); LYMPHOCYTES 44.9 % (24.0-44.0); MCH 30.9 pg (26.0-34.0); MCV 90.9 fL (80.0-100.0); MONOCYTES 5.6 % (1.0-8.0); PLATELET COUNT 256 thou/uL (150-400); POLYS 47.2 % (36.0-66.0); RBC 4.11 mil/uL (4.20-5.00); RDW 15.1 % (10.5-14.5); WBC 5.7 thou/uL (4.0-11.0)
--- NOTE | 2020-06-02 07:30 | EKG ---
[facility] [place] [address] ELECTROCARDIOGRAM REPORT Name: AME HOYT Room #: 463-P ADM IN M.R.#: [id number] Admission: 06/01/20 Attend Phys: Camilo Scott MD Discharge: Date of : 43 Report #: [id number] THIS REPORT FOR: cc: Germaine Reynoso Beth RNP Lundgren, Craig H. MD [facility] ~ THIS REPORT FOR: //name// [facility] ED Test Date: 2020-06-01 Test Time: 13:55:30 Pat Name: AME HOYT Department: Room: 463 Gender: F Curing Supervisor: savannah : 1945 Requested By: Marika Layne Order Number: [id number] MD: Leroy Pandya Measurements Intervals Byron Rate: 112 P: 0 OR: 102 QRS: -63 QRSD: 93 T: 79 QT: 362 QTc: 494 Interpretive Statements Sinus tachycardia Left anterior fascicular block Abnormal R-wave progression, late transition Probable LVH with secondary repol abnrm Borderline prolonged QT interval Compared to ECG 08/14/2019 20:28:08 Heart rate has increased Incomplete right bundle-branch block no longer present Electronically Signed On 06-02-2020 7:30:31 CDT by Leroy Pandya [email or web address] <ELECTRONICALLY SIGNED> By: Leroy Pandya MD, [facility] 06/02/20 0730 [id number] [id number] Leroy Pandya MD, [facility] /EPI
[2020-06-02 08:00] VITALS: BP 143/57
--- NOTE | 2020-06-02 08:05 | NUR ---
Pt. admitted to the unit during shift change from the emergency room accompanied by staff. She has been oriented to staff and her room. Pt. encouraged to use call light when needing assistance. Bed alarm is on.
[2020-06-02 08:18] LABS: CALCIUM 9.3 mg/dL (8.5-10.1); CREATININE 0.7 mg/dL (0.6-1.0); MAGNESIUM 2.1 mg/dL (1.8-2.4)
[2020-06-02 08:20] LABS: POTASSIUM 4.7 mmol/L (3.5-5.1)
[2020-06-02 11:20] VITALS: BP 143/57
--- NOTE | 2020-06-02 12:11 | NUR ---
PT ADMITTED RELATED TO WEAKNESS. CM REVIEWED CHART AND SPOKE WITH CARE TEAM. CM CALLED AND SPOKE WITH PT'S DTR SARY PT RESIDES IN A HOUSE WITH HER WITH 2 STEPS TO ENTER AND NO STEPS PT USES INSIDE. SHE INDICATED PT USES A FWW TO GET AROUND CALL CENTER SUPPORT REPRESENTATIVE. PT HAS HAD [facility] HH IN THE PAST AND HAD GONE TO [facility]. CARE TEAM INDICATED THAT PT IS MEDICALLY STABLE TO DC HOME WITH HH SERVICES THIS DAY. PT'S DTR IS AWARE AND AGREEABLE. PT'S FAMILY TO PICK HER UP AT 1300. ORDERES SENT TO [facility] FOR SERVICES UPON DC. NO OTHER CM INTERVENTION INDICATED. CASE CLOSED.
--- NOTE | 2020-06-02 12:17 | NUR ---
FAXED REFERRAL TO [facility] SPOKE WITH JESSIE IN INTAKE SHE RECEIVED REFERRAL AND WILL ACCEPT. FAXED DC ORDERS/SUMMARY RECEIVED MANNIE AND JESSIE WILL NOTIFY PT TIME OF VISITS.
[2020-06-02 12:52] VITALS: BP 143/57
--- NOTE | 2020-06-02 15:44 | NUR ---
PT IS AOX2-3, FORGETFUL AT TIMES. PT IS NONCOMPLIANT WITH DIABETIC DIET. NURSE EDUCATED PT ON PLAN OF CARE AND THE IMPORTANCE OF HER DIET PLAN. PT HAD ELEVATED BS BEFORE DISCHARGE, DR. COOK WAS NOTIFIED AND ORDERED AN ADDITIONAL 6 UNITS OF INSULIN ALONG WITH THE 12 UNITS S/S. PT DAUGHTER PICKED HER UP TO TRANSFER HOME. IV D/C'D.
== END 2020-06-02 13:30 | disposition home health service (06) | DRG 639 ==
LOC: ER 12:19 → EROBS 17:26 → 4W 17:26
PROVIDERS: Emergency Medicine; Nurse Practitioner; ADMIT Hospitalist; ATTEND Hospitalist
DX: E11.649 Type 2 diabetes mellitus with hypoglycemia without coma (principal); Z96.653 Presence of artificial knee joint, bilateral; M19.90 Unspecified osteoarthritis, unspecified site; E78.00 Pure hypercholesterolemia, unspecified; I10 Essential (primary) hypertension; I49.9 Cardiac arrhythmia, unspecified; F03.90 Unspecified dementia, unspecified severity, without behavioral disturbance, psychotic disturbance, mood disturbance, and anxiety; E78.5 Hyperlipidemia, unspecified; G40.909 Epilepsy, unspecified, not intractable, without status epilepticus; I72.9 Aneurysm of unspecified site; G93.89 Other specified disorders of brain; R00.0 Tachycardia, unspecified; E86.0 Dehydration; G47.00 Insomnia, unspecified; Z86.73 Personal history of transient ischemic attack (TIA), and cerebral infarction without residual deficits; Z90.710 Acquired absence of both cervix and uterus; Z88.1 Allergy status to other antibiotic agents; Z88.2 Allergy status to sulfonamides; Z88.8 Allergy status to other drugs, medicaments and biological substances; Z87.891 Personal history of nicotine dependence; Z79.82 Long term (current) use of aspirin; Z79.899 Other long term (current) drug therapy; Z83.3 Family history of diabetes mellitus; Z82.49 Family history of ischemic heart disease and other diseases of the circulatory system
CPT/HCPCS: 10045

== ENCOUNTER 2020-08-11 00:40 | Inpatient (IN) | payer OTHER ==
[~2020-08-11] VITALS: Ht 165.1 cm; Wt 70.3 kg
[2020-08-11 00:40] VITALS: BP 102/70
[~2020-08-11 00:40] MED LIST changes: +DESYREL150 MG PO; +HUMALOG100 UNIT/1 SUBQ
[2020-08-11 03:32] LABS: HEMATOCRIT 39.2 % (37.0-47.0); HEMOGLOBIN 12.9 gm/dL (12.0-15.0); MCH 30.5 pg (26.0-34.0); MCHC 32.9 g/dL (28.0-37.0); MCV 92.6 fL (80.0-100.0); RBC 4.24 mil/uL (4.20-5.00); RDW 13.5 % (10.5-14.5); WBC 7.7 thou/uL (4.0-11.0)
[2020-08-11 03:41] LABS: ANION GAP 8 mmol/L (7-16); BUN 42 mg/dL (7-18); CALCIUM 9.2 mg/dL (8.5-10.1); CHLORIDE 103 mmol/L (98-107); CO2 25 mmol/L (21-32); CREATININE 0.9 mg/dL (0.6-1.0); GLUCOSE 378 mg/dL (74-106); POTASSIUM 4.3 mmol/L (3.5-5.1); SODIUM 136 mmol/L (136-145)
[2020-08-11 03:49] LABS: TROPONIN-I <0.06 ng/mL (<0.06)
[2020-08-11 06:24] VITALS: BP 125/56
[2020-08-11 07:22] VITALS: BP 136/57
--- NOTE | 2020-08-11 08:52 | EKG ---
[facility] [place] [address] ELECTROCARDIOGRAM REPORT Name: AME HOYT Room #: 435-P ADM IN M.R.#: [id number] Admission: 08/11/20 Attend Phys: Nat Wilson MD Discharge: Date of : 41 Report #: [id number] THIS REPORT FOR: cc: Germaine Reynoso Beth RNP Lundgren, Craig H. MD [facility] ~ THIS REPORT FOR: //name// [facility] ED Test Date: 2020-08-11 Test Time: 03:26:14 Pat Name: AME HOYT Department: Room: [facility] Gender: F Manager Data Warehouse: reji : 1945 Requested By: Kenny Zelaya Order Number: [id number] MD: Leroy Pandya Measurements Intervals Henderson Rate: 93 P: ID: QRS: -63 QRSD: 101 T: 101 QT: 396 QTc: 493 Interpretive Statements Probable sinus rhythm Incomplete RBBB and LAFB LVH with secondary repolarization abnormality Borderline prolonged QT interval Compared to ECG 06/01/2020 13:55:30 No significant change was found Electronically Signed On 08-11-2020 8:52:17 CDT by Leroy Pandya [email or web address] <ELECTRONICALLY SIGNED> By: Leroy Pandya MD, FACC 08/11/20 0852 5 5 Leroy Pandya MD, FAC /EPI
--- NOTE | 2020-08-11 11:32 | NUR ---
ASSESSMENT: CM REVIEWED CHART AND SPOKE WITH PATIENT WELL HER DAUGHTER SARY THAT SHE LIVES WITH. PT WAS ADMITTED DUE TO FALL/HYPOTENSION. PT LIVES IN A HOUSE WITH HER DAUGHTER. PT HAS TWO STEPS TO ENTER THE HOME WITH HANDRAILS AND NO STEPS SHE HAS TO USE ONCE INSIDE. DAUGHTER REPORTS HX OF DEMENTIA AND REPORTS THAT SHE AND HER SISTER ALBERTO HELP ASSIST PATIENT. ALBERTO WORKS AT [facility] 3-11PM SHIFT SO SHE IS ABLE TO STAY WITH PATIENT DURING THE DAY AND THEN SARY IS THERE IN THE EVENING/NIGHT. THEY HELP ASSIST PATIENT WITH ADLS AND MEDICATIONS.PT HAS A WALKER AT HOME WELL A SHOWER CHAIR. PT HAS HAD [facility] IN THE PAST AND BEEN TO [facility] IN THE PAST. PT/OT TO SEE PATIENT TODAY AND CM WILL CONTINUE TO FOLLOW TO ASSIST NEEDED.
[2020-08-11 18:55] VITALS: BP 156/54
[2020-08-11 21:03] VITALS: BP 156/54
--- NOTE | 2020-08-11 21:19 | NUR ---
Assumed care of pt. at 0730. Pt. was calm and cooperative. Pt. complained of pain in RLE on the knee. Physician notified, orders given for 2 view X-ray of R. knee. Pt. BG level tested to be 451 at 1247, physician notified, no orders given. Pt. BG tested to be 470 at 1812. Physician notified, order given for one time admin. of 20 units of Regular Insulin, and a remeasure in 2 hours[address] Fall precautions in place.
--- NOTE | 2020-08-12 02:40 | NUR ---
PT AOX4. PT REPORTS 7-8/10 PAIN IN RIGHT KNEE AND RIGHT HIP. PT RECEIVING PRN PO MORCO Q6HR WITH PRN PO APAP Q4HR AVAILABLE. PT REPORTS SOB AND WEAKNESS WITH EXERTION SUCH REPOSITIONING. 2L O2 VIA NC APPLIED, PT REPORTING IMMEDIATE RELIEF. PT REPORTS NUMBNESS IN TOES ON BOTH FEET. CAPILLARY REFILL TO TOES ON RIGHT FOOT GREATER THAN 3SECS, TO TOES ON LEFT FOOT LESS THAN 3SECS. PT REPORTS NUMBNESS ALLEVIATING WITH ROM AND TACTILE STIMULATION. PT REPORTS ONSET OF NUMBNESS OCCURRED WITH PROLONGED BEDREST. PT NOTED TO GET DIZZY AND WEAK WHEN SITTING UP WHILE IN BED USING BED CONTROLS. PT ALSO NOTED TO HAVE INCREASED PAIN WITH TACTILE STIMULATION AND MOVEMENT. BEDSIDE COMMODE USE DISCOURAGED, BEDPAN USED, PERICARE PROVIDED. PT NOTED TO HAVE INTERMITTENT EPISODES OF INCONTINENCE. PT TOLERATING PO INTAKE OF FLUIDS AND CARB CONTROLLED DIET. FREQUENT REPOSITIONING ENCOURAGED. PT NOTED TO SHIFT INDEPENDENTLY WHILE IN BED. ENCOURAGED PT TO NOTIFY STAFF FOR ALL NEEDS. CALL LIGHT WITHIN REACH, BED ALARM ON, BED IN LOWEST POSITION, FREQUENT MONITORING WILL CONTINUE.
[2020-08-12 04:29] VITALS: BP 156/66
[2020-08-12 06:09] LABS: ABSOLUTE NEUTROPHILS 4.2 thou/uL (1.4-8.2); BASOPHILS 0.5 % (0.0-2.0); EOSINOPHILS 1.6 % (0.0-3.0); HEMATOCRIT 31.8 % (37.0-47.0); LYMPHOCYTES 27.3 % (24.0-44.0); MCHC 33.6 g/dL (28.0-37.0); MCV 92.2 fL (80.0-100.0); MONOCYTES 7.8 % (1.0-8.0); POLYS 62.8 % (36.0-66.0); RBC 3.45 mil/uL (4.20-5.00); RDW 13.4 % (10.5-14.5); WBC 6.7 thou/uL (4.0-11.0)
[2020-08-12 06:22] LABS: HEMOGLOBIN 10.7 gm/dL (12.0-15.0); PLATELET COUNT 185 thou/uL (150-400)
[2020-08-12 06:24] LABS: CALCIUM 8.6 mg/dL (8.5-10.1); CREATININE 0.7 mg/dL (0.6-1.0); MAGNESIUM 1.9 mg/dL (1.8-2.4)
[2020-08-12 08:01] VITALS: BP 139/69
[2020-08-12 13:29] LABS: URINE BILIRUBIN NEGATIVE (Negative); URINE BLOOD NEGATIVE (Negative); URINE CLARITY CLEAR; URINE COLOR YELLOW; URINE GLUCOSE-RANDOM* 3+ (Negative); URINE KETONES NEGATIVE (Negative); URINE LEUKOCYTES-REFLEX NEGATIVE (Negative); URINE NITRITE-REFLEX NEGATIVE (Negative); URINE PROTEIN (DIPSTICK) NEGATIVE (Negative); URINE SPECIFIC GRAVITY 1.015 (1.005-1.035); URINE UROBILINOGEN 0.2 E.U./dl (0.2-1.0)
--- NOTE | 2020-08-12 16:03 | NUR ---
on-going assessment: cm reviewed cHART AND SPOKE WITH ATTENDING WHO STATES PT IS MEDICALLY STABLE FOR DISCHARGE. GIOVANNI SPOKE WITH LIASON FROM [facility] WHO REPORTS THAT THEY HAVE RECEIVED INSURANCE AUTH BUT ARE NEEDING THE RESULTS OF COVID TEST PRIOR TO ACCEPTING AND CANNOT ACCEPT THE PATIENT AFTER 3PM SO PATIENT WILL NEED TO DISCHARGE ON MONDAY 08/13 DUE TO STAFFING. CM NOTIFIED ATTENDING. CM ALSO NOTIFIED PATIENTS DEISI OKEEFE. PLAN IS TO DISCHARGE TO [facility] SATURDAY. CONTACT DIMA WALL AT [phone] AND COORDINATE DISCHARGE AND TRANSPORTATION. FAX ORDERS TO [phone]. PATIENT WILL NEED TO BE SENT WITH A CHART COPY. FAX COVID RESULTS TO [facility] PRIOR TO DISCHARGE. CONTACT PATIENTS DAUGHTER SARY TO NOTIFY OF DISCHARGE TIME.
[2020-08-12 16:11] VITALS: BP 138/66
--- NOTE | 2020-08-12 16:13 | NUR ---
ASSUMED CARE OF PT AT 0700. PT IS A&OX4 AND VITAL SIGNS ARE STABLE. PT REPORTS PAIN TO RIGHT KNEE AND HIP. PAIN MANAGED WITH LIDOCAINE PATCH. ORDERS FOR COVID TEST PRIOR TO D/C TO FACILITY, RESULTS PENDING. ACCU CHECKS ACHS, INSULIN ORDERS UPDATED AND PT EDUCATED ABOUT S/S OF HYPOGLYCEMIA AND TO NOTIFY NURSING IF SHE SUSPECTS LOW BG. UA OBTAINED PER ORDERS. DAUGHTER ON UNIT THIS AFTERNOON. FALL PRECAUTIONS IN PLACE AND NURSING WILL CONTINUE TO MONITOR.
[2020-08-12 22:30] VITALS: BP 125/62
--- NOTE | 2020-08-13 01:32 | NUR ---
PATIENT ALERT AND ORIENTED X4. UP TO BSC, HOWEVER, INCONTINENT OF URINE X1. COOPERATIVE WITH CARE. BS MONITORED PER ORDER. PLANS TO DISCHARGE IN AM TO [facility]. RESTING QUIETLY. WILL MONITOR.
[2020-08-13 02:06] LABS: GLYCOHEMOGLOBIN (HGB A1C) 9.2 % (4.8-5.6)
[2020-08-13 08:01] VITALS: BP 114/73
--- NOTE | 2020-08-13 12:22 | HC ---
[facility] [place] [address] CONSULTATION Name: AME HOYT Room #: 435-P [facility] M.R.#: [id number] Admission: 08/11/20 Attend Phys: Nat Wilson MD Discharge: Date of : 41 Report #: [id number] THIS REPORT FOR: cc: Germaine Reynoso Beth RNP Al-Mubaslat, Ahmad MD ~ DATE OF SERVICE: 08/12/2020 ENDOCRINE CONSULTATION NOTE CONSULTING PHYSICIAN: Dr. Wilson. REASON FOR CONSULTATION: Uncontrolled type 2 diabetes mellitus. HISTORY OF PRESENT ILLNESS: This is a 74-year-old female patient whose medical background is significant for multiple medical issues including type 2 diabetes mellitus, hypertension, hyperlipidemia as well as dementia. The patient presented here following a fall that she had. The patient describes having tripped over and fallen rather than experienced loss of consciousness or severe dizziness. The patient's background is noted for longstanding type 2 diabetes mellitus that is insulin-dependent. Her course has been complicated by her dietary noncompliance, lack of cooperation with her family members who monitor her closely at home as she snacks through the night. Her blood glucose pattern has been rather labile with frequent episodes with severe hypoglycemia as well as severe hyperglycemia in the past. Her most recent regimen consists of Trulicity 15 units daily in addition to Humalog insulin 5 units b.i.d. with breakfast and lunch in addition to Trulicity 0.75 mg once weekly. Her daughter, who was present at bedside, explained that her blood glucose values would mostly run in the mid to high 100s with fewer hypoglycemia episodes taken place over the past few weeks with this regimen. The patient is not aware of documented diabetic retinopathy. She is not aware of issues of nephropathy or active heart disease. She is also hyperlipidemia and is maintained on atorvastatin 40 mg daily as well as hypertensive and is maintained on lisinopril 40 mg b.i.d. REVIEW OF SYSTEMS: CONSTITUTIONAL: Fatigue, tiredness, but no body weight changes, fever or chills. HEENT: Negative for sore throat, sinus pain or ear drainage. PULMONARY: Negative for chronic shortness of breath, cough or hemoptysis. CARDIAC: Negative for chest pain, palpitations, syncope or presyncope. GASTROINTESTINAL: Negative for abdominal pain, nausea, vomiting or changes in bowel movement frequency. [facility] [address] [place] [address] CONSULTATION Name: AME HOYT Room #: 435-P [facility] IN ..#: [id number] Admission: 08/11/20 Attend Phys: Nat Wilson MD Discharge: Date of : 41 Report #: [id number] NEUROLOGY: Negative for loss of consciousness, frequent severe headaches or seizure activity. Otherwise, review of systems noncontributory other than those mentioned in HPI. PAST MEDICAL HISTORY: 1. Type 2 diabetes mellitus. 2. Hypertension. 3. Hyperlipidemia. 4. Dementia. 5. Osteoarthritis. 6. History of ketoacidosis in 03/2018 and 08/2018. 7. History of aneurysm and surgical clipping. OUTPATIENT MEDICATIONS: Include Keppra 500 mg b.i.d., Tresiba 15 units daily, amlodipine 10 mg daily, atorvastatin 40 mg daily, Trulicity 0.75 mg weekly, Seroquel 100 mg at bedtime, lisinopril 40 mg b.i.d., paroxetine 10 mg daily, Humalog insulin 5 units b.i.d., trazodone 50 mg at bedtime, aspirin 81 mg daily. ALLERGIES: CLINDAMYCIN, AMOXICILLIN, CIPROFLOXACIN, CLONIDINE, EXENATIDE AND SULFADIAZINE. FAMILY HISTORY: Noncontributory. SOCIAL HISTORY: The patient denies use of tobacco, alcohol or illicit drugs. She lives with her daughter. PHYSICAL EXAMINATION: GENERAL: Pleasant female patient, who is not in apparent pain or distress. She is lying comfortably in bed. VITAL SIGNS: Blood pressure 139/69 mmHg, heart rate 57 beats per minute, respiration 18 per minute, temperature 36.5 degrees Celsius. CONSTITUTIONAL: The patient appears well, not in apparent distress, but somewhat lethargic. HEENT: Anicteric sclerae. Intact extraocular motions. NECK: Supple, without thyromegaly or JVD. HEART: Regular rate and rhythm without murmurs. ABDOMEN: Soft, lax. No guarding. Active bowel sounds. CHEST: Moderate air entry bilaterally with scattered rales, but no wheezes or crackles. EXTREMITIES: Lower extremity, negative for significant ankle edema, skin breaks or ulcerations. NEUROLOGIC: Awake, alert and fairly oriented. Largely nonfocal exam. PSYCHIATRIC: Pleasant, interactive. Flat mood and affect. [address] [address] CONSULTATION Name: AME HOYT Room #: 435-P [facility] IN M.R.#: [id number] Admission: 10/15/20 Attend Phys: Nat Wilson MD Discharge: Date of : 41 Report #: [id number] LABORATORY DATA: Since arrival to the hospital, the patient has been exhibiting sustained hyperglycemia with her initial blood glucose at 451, exceeding 500 at some point. Prior to this dictation, she had declined to 350 mg/dL, sodium 139, potassium 4.0, chloride 105, CO2 of 26, anion gap 8, BUN 38, creatinine 0.7, AST 24, total bilirubin 0.5, calcium 8.6, phosphorus 3.9, magnesium 1.9, alkaline phosphatase 78, ALT 35, albumin 3.4, EGFR 81. Lactic acid 1.2. Troponin is negative. Total cholesterol 153 and this is 2018. Free T4 1.1. INR 1.0. White blood count 6.7, hemoglobin 10.7, hematocrit 31.8, platelets 185. Her hemoglobin A1c in November 2019 was 12.2%. ASSESSMENT AND PLAN: 1. Type 2 diabetes mellitus. Historically, the patient has been uncontrolled and her course has been marked by severe wide fluctuations in blood glucose, including an issue of propensity for severe hypoglycemia with incremental insulin intake. I had seen the patient during prior hospitalizations and she did prove to be a sensitive during these hospitalizations to minor insulin adjustments. I discussed the ultimate priorities of glycemic management with the patient and her daughter today and explained that avoiding hypoglycemia would remain a yee priority as we try to address the issue of hyperglycemia. That said, I will start the patient on a regimen of 12 units of Lantus daily in addition to Humalog 3 units with meals while we support her with Humalog supplemental scale low intensity to be activated only in the event of blood glucose in excess of 200 mg/dL. Her blood glucose monitoring will commence a.c. and at bedtime to help us adjust her regimen further as needed. Furthermore, I will request a hemoglobin A1c to better assess her most recent level of control, but judging by the recorded blood glucose values, she seems to have been under reasonable control. 2. Hyperlipidemia. The patient is maintained on atorvastatin therapy and tolerates it well, she is to continue with the same. 3. Hypertension. The patient's level of blood pressure control is acceptable, she is to continue with the current regimen. I have reviewed the patient's clinical care notes, laboratory data, and other pertinent clinical information for over 35 minutes in addition to my encounter time with her. [place] [address] [facility] [place] [address] CONSULTATION Name: EVELINA,AME M Room #: 435-P [facility]#: [id number] Admission: 08/11/20 Attend Phys: Nat Wilson MD Discharge: Date of : 41 Report #: [id number] I certainly appreciate this consultation by Dr. Wilson. <ELECTRONICALLY SIGNED> By: Deisi Heath MD 08/13/20 1222 1247 [id number] Deisi Heath MD /nt
--- NOTE | 2020-08-13 12:25 | NUR ---
PT DISCHARGING TODAY TO [facility] FOR SKILLED STAY FAXED DC ORDERS/SUMMARY RECEIVED CONFIRMATION AND SPOKE WITH DIMA IN ADM SHE ARRANGED VAN FOR 1530 TODAY. LEFT MSG WITH PT'S DTR OF DC AND TIME OF TRANSPORT. UNIT NOTIFIED AND CHART COPY PER US. RN TO CALL REPORT TO [phone].
--- NOTE | 2020-08-13 14:15 | NUR ---
ASSUMED CARES AT 0700. PT AWAKE, ALERT AND ORIENTED*4. C/O PAIN IN RLE AND RIGHT KNEE, PAIN MEDICATION ADMINISTERED NEEDED. VITALS REMAIN STABLE. PT UP WITH 1 MOD ASSIST TO BEDSIDE COMMODE, DIFFICULT MOVING R/T PAIN. C/O DIZZINESS BUT VITALS TAKEN WERE STABLE. PT SLEEPING PEACEFULLY AFTER LUNCH. PLAN IS TO DC TO [facility] AT 330, REPORT CALLED IN TO SID BOWMAN. Q1H VISUAL CHECKS. CALL LIGHT WITHIN REACH. FALL PRECAUTIONS IN PLACE
== END 2020-08-13 16:30 | DRG 884 ==
LOC: ER 00:40 → EROBS 04:07 → 4S 04:07
PROVIDERS: Emergency Medicine; Internal Medicine; Nurse Practitioner; ADMIT Hospitalist; ATTEND Hospitalist
DX: F03.90 Unspecified dementia, unspecified severity, without behavioral disturbance, psychotic disturbance, mood disturbance, and anxiety (principal); N17.9 Acute kidney failure, unspecified; E11.65 Type 2 diabetes mellitus with hyperglycemia; G93.89 Other specified disorders of brain; Z20.828 Contact with and (suspected) exposure to other viral communicable diseases; Z96.653 Presence of artificial knee joint, bilateral; G47.00 Insomnia, unspecified; M19.90 Unspecified osteoarthritis, unspecified site; E78.00 Pure hypercholesterolemia, unspecified; F32.9 Major depressive disorder, single episode, unspecified; E78.5 Hyperlipidemia, unspecified; G40.909 Epilepsy, unspecified, not intractable, without status epilepticus; Z86.73 Personal history of transient ischemic attack (TIA), and cerebral infarction without residual deficits; Z90.710 Acquired absence of both cervix and uterus; Z88.1 Allergy status to other antibiotic agents; Z88.2 Allergy status to sulfonamides; Z88.8 Allergy status to other drugs, medicaments and biological substances; Z83.3 Family history of diabetes mellitus; Z82.49 Family history of ischemic heart disease and other diseases of the circulatory system; Z79.82 Long term (current) use of aspirin; Z79.899 Other long term (current) drug therapy
CPT/HCPCS: 10102

== ENCOUNTER → 2020-09-06 | Outpatient (CLI) | payer OTHER | LOC: LAB 08:20 | PROVIDERS: ATTEND Nurse Practitioner | DX: Z20.828 Contact with and (suspected) exposure to other viral communicable diseases (principal) ==

== ENCOUNTER 2021-05-21 19:52 | Emergency (ER) | payer OTHER ==
[~2021-05-21] VITALS: Ht 165.1 cm; Wt 59.0 kg
[2021-05-21 20:22] LABS: ABSOLUTE NEUTROPHILS 6.8 thou/uL (1.4-8.2); BASOPHILS 0.7 % (0.0-2.0); EOSINOPHILS 0.5 % (0.0-3.0); HEMATOCRIT 41.6 % (37.0-47.0); HEMOGLOBIN 14.3 gm/dL (12.0-15.0); LYMPHOCYTES 12.7 % (24.0-44.0); MCHC 34.3 g/dL (28.0-37.0); MCV 93.3 fL (80.0-100.0); MONOCYTES 2.6 % (1.0-8.0); PLATELET COUNT 238 thou/uL (150-400); POLYS 83.5 % (36.0-66.0); RBC 4.46 mil/uL (4.20-5.00); RDW 13.9 % (10.5-14.5); WBC 8.2 thou/uL (4.0-11.0)
[2021-05-21 20:31] LABS: CALCIUM 8.8 mg/dL (8.5-10.1); CREATININE 0.7 mg/dL (0.6-1.0); POTASSIUM 3.6 mmol/L (3.5-5.1)
[2021-05-21 20:37] LABS: ALBUMIN 3.8 g/dL (3.4-5.0); TOTAL BILIRUBIN 0.6 mg/dL (0.2-1.0); TOTAL PROTEIN 7.6 g/dL (6.4-8.2)
[2021-05-21 20:46] LABS: URINE BILIRUBIN NEGATIVE (Negative); URINE BLOOD NEGATIVE (Negative); URINE CLARITY SL CLOUDY; URINE COLOR YELLOW; URINE GLUCOSE-RANDOM* 2+ (Negative); URINE KETONES NEGATIVE (Negative); URINE LEUKOCYTES-REFLEX NEGATIVE (Negative); URINE NITRITE-REFLEX NEGATIVE (Negative); URINE PROTEIN (DIPSTICK) TRACE (Negative); URINE SPECIFIC GRAVITY 1.015 (1.005-1.035); URINE UROBILINOGEN 0.2 E.U./dl (0.2-1.0)
[2021-05-21 22:52] VITALS: BP 136/60
--- NOTE | 2021-05-22 07:25 | EKG ---
[address] [place] [address] ELECTROCARDIOGRAM REPORT Name: AME HOYT Room #: [facility]#: [id number] Admission: 05/21/21 Attend Phys: Discharge: 05/21/21 Date of : 41 Report #: [id number] [facility] ED Test Date: 2021-05-21 Test Time: 20:59:50 Pat Name: AME HOYT Department: Room: Gender: F Senior Lead Developer: : 1945 Requested By: Oneal Brown Order Number: [id number] MD: Chano Raymond Measurements Intervals [place] Rate: 47 P: 20 DC: 230 QRS: -52 QRSD: 119 T: 98 QT: 512 QTc: 453 Interpretive Statements Sinus bradycardia Borderline prolonged DC interval Nonspecific T abnrm, anterolateral leads Baseline wander in lead(s) V4 Compared to ECG 08/11/2020 03:26:14 Incomplete right bundle-branch block no longer present Right bundle-branch block no longer present Left ventricular hypertrophy no longer present Early repolarization no longer present Electronically Signed On 05-22-2021 7:25:21 CDT by Chano Raymond [email or web address] <ELECTRONICALLY SIGNED> By: Chano Raymond MD, [facility] 05/22/21724 58 58 Chano Raymond MD, [facility] /EPI
== END 2021-05-21 23:14 | disposition home or self-care (01) ==
LOC: ER 19:52
PROVIDERS: Emergency Medicine
DX: E16.1 Other hypoglycemia (principal); E78.00 Pure hypercholesterolemia, unspecified; I10 Essential (primary) hypertension; Z90.710 Acquired absence of both cervix and uterus; Z79.899 Other long term (current) drug therapy; Z79.4 Long term (current) use of insulin; Z88.1 Allergy status to other antibiotic agents; Z88.2 Allergy status to sulfonamides; Z88.8 Allergy status to other drugs, medicaments and biological substances